=== PATIENT | female | born 1960 | race Caucasian/White ===

== ENCOUNTER 2021-08-09 15:35 | Emergency (ER) | payer SELFPAY ==
[~2021-08-09] VITALS: Ht 165.1 cm; Wt 68.6 kg
[2021-08-09 15:48] VITALS: BP 137/83
--- NOTE | 2021-08-09 16:18 | NUR ---
Ice pack placed in pillow case on right wrist.
[2021-08-09] MEDS ORDERED: propofol 10mg/ml 20ml vial IV ONE (16:35)
[2021-08-09] MEDS ORDERED: ondansetron 4mg rapidly disintigrating tab PO ONE (16:35)
[2021-08-09] MEDS ORDERED: morphine 4 MG/ML inj SYRINge IV ONE (16:35)
[2021-08-09] MEDS ORDERED: BUPIVAcaine 0.5% W/EPI /PF 30ml vial IJ ONE (16:50)
[2021-08-09] MEDS ORDERED: fentaNYL/PF 50MCG/1 ML 2ML syringe IV ONE (16:50)
[2021-08-09] MEDS ORDERED: BUPIVAcaine 0.5% W/EPI /PF 10ml vial IJ ONE (17:05)
[2021-08-09] MEDS ORDERED: ONDA4TAB6 PO (18:03)
[2021-08-09] MEDS ORDERED: HYDR-3965 PO (18:03)
== END 2021-08-09 18:20 | disposition home or self-care (01) ==
LOC: ER 15:35
DX: S52.511A Displaced fracture of right radial styloid process, initial encounter for closed fracture (principal); M25.531 Pain in right wrist; Z79.899 Other long term (current) drug therapy; W19.XXXA Unspecified fall, initial encounter; Y93.89 Activity, other specified; Y92.89 Other specified places as the place of occurrence of the external cause; Y99.8 Other external cause status
CPT/HCPCS: 25605; 73100; 73110; 96374; 96375; 99284; J2270; J3010

== ENCOUNTER 2021-09-15 15:43 | Inpatient (IN) | payer BC ==
[~2021-09-15] VITALS: Ht 165.1 cm; Wt 69.1 kg
[~2021-09-15 15:43] MED LIST: ONDA4TAB6 PO
[2021-09-15 17:25] LABS: BASOPHILS # (AUTO) 0.1 X10'3 (0-0.2); BASOPHILS % (AUTO) 0.4 % (0-1); EOSINOPHILS # (AUTO) 0.1 X10'3 (0-0.9); EOSINOPHILS % (AUTO) 0.6 % (0-6); LYMPHOCYTES # (AUTO) 1.1 X10'3 (1.1-4.8); LYMPHOCYTES % (AUTO) 5.2 % (21-51); MEAN CORPUSCULAR HEMOGLOBIN 35.8 PG (27.0-31.0); MEAN CORPUSCULAR HGB CONC 32.9 g/dL (33.0-36.5); MEAN PLATELET VOLUME 7.3 FL (7.4-10.4); MONOCYTES # (AUTO) 0.9 X10'3 (0-0.9); MONOCYTES % (AUTO) 4.4 % (2-12); NEUTROPHILS # (AUTO) 18.5 X10'3 (1.8-7.7); NEUTROPHILS % (AUTO) 89.4 % (42-75); PLATELET COUNT 577 X10'3 (140-440); RED BLOOD COUNT 1.15 X10'6 (4.20-5.60); RED CELL DISTRIBUTION WIDTH 16.1 % (11.5-14.5); WHITE BLOOD COUNT 20.7 X10'3 (4.5-11.0)
[2021-09-15 17:31] LABS: ALANINE AMINOTRANSFERASE 15 U/L (12-78); ALBUMIN 2.8 G/DL (3.4-5.0); ALBUMIN/GLOBULIN RATIO 0.7 (1.1-1.5); ALKALINE PHOSPHATASE 69 IU/L (46-116); ANION GAP 12 (8-16); ASPARTATE AMINO TRANSFERASE 13 U/L (10-37); BILIRUBIN,TOTAL 0.1 MG/DL (0.1-1.0); BLOOD UREA NITROGEN 57 MG/DL (7-18); BUN/CREATININE RATIO 24.2 (6.6-38.0); CALCIUM 9.2 MG/DL (8.5-10.1); CHLORIDE 101 MMOL/L (99-107); CREATININE 2.36 MG/DL (0.40-0.90); GLUCOSE 109 MG/DL (70-104); POTASSIUM 3.7 MMOL/L (3.5-5.1); SODIUM 133 MMOL/L (135-145); TOTAL CARBON DIOXIDE 20.2 MMOL/L (24-32); TOTAL PROTEIN 6.9 G/DL (6.4-8.2); eGFR 21 ML/MIN
[2021-09-15 17:38] LABS: HEMOGLOBIN 4.1 g/dl (12.0-16.0)
[2021-09-15 17:39] LABS: HEMATOCRIT 12.6 % (35.0-45.0)
[2021-09-15] MEDS ORDERED: HYDROcodone/acetaminophen 5mg/325mg tablet PO ONE (17:55)
[2021-09-15] MEDS ORDERED: normal saline 1000ml 1,000 ML IV ONE (17:55)
[2021-09-15 18:23] LABS: ETHANOL < 0.010 GM/DL (0.0-0.010)
[2021-09-15] MEDS ORDERED: CefTRIAXone/D5W-Rocephin 1gm 50 ML IV ONE (18:50)
[2021-09-15] MEDS ORDERED: pantoprazole 40 MG vial IV ONE (18:50)
[2021-09-15] MEDS: octreotide inj. 1,250 MCG in normal saline 250ml IV soln 243.75 ML IV SCH (19:28)
[2021-09-15 20:23] LABS: CLARITY,URINE SLIGHTLY CLOUDY (Clear); COLOR,URINE YELLOW (Yellow); UA COLLECTION TYPE STRAIGHT CATH
[2021-09-15 20:24] LABS: GLUCOSE, URINE NEGATIVE (Neg); KETONES,URINE NEGATIVE (Neg); LEUKOCYTE ESTERASE ,URINE MODERATE (Neg); NITRITES, URINE NEGATIVE (Neg); OCCULT BLOOD,URINE TRACE-INTACT (Neg); PH,URINE 7.5 (4.8-8.0); PROTEIN,URINE NEGATIVE (Neg); UROBILINOGEN,URINE 0.2 E.U/dL (0.2-1.0)
[2021-09-15 20:38] LABS: BACTERIA,URINE 3+ /HPF (Neg); MUCUS STRANDS NONE SEEN /LPF (Neg); RBC,URINE 0-2 /HPF (0-2); SQUAMOUS EPITHELIAL CELL,UR FEW /LPF (FEW); WBC,URINE TNTC /HPF (0-4)
[2021-09-15] MEDS ORDERED: morphine 2 MG/ML inj. syringe IV PRN (20:45)
[2021-09-15] MEDS ORDERED: magnesium Cl slow-release 64mg tablet PO PRN (20:45)
[2021-09-15] MEDS ORDERED: dextrose 50%-water 50ml dispensing syringe IV PRN (20:45)
[2021-09-15] MEDS ORDERED: potassium Cl 40MEQ/1/2NS 520ml 520 ML IV PRN ×2 (20:45)
[2021-09-15] MEDS ORDERED: LORazepam 2 mg/ml vial IV PRN (20:45)
[2021-09-15] MEDS ORDERED: acetaminophen 325mg tablet PO PRN ×2 (20:45)
[2021-09-15] MEDS ORDERED: magnesium 2GM in 50ml NS 50 ML IV PRN (20:45)
[2021-09-15] MEDS ORDERED: ondansetron/PF 4mg/2ml inj IV PRN (20:45)
[2021-09-15] MEDS ORDERED: magnesium 4gm in 100ml NS 100 ML IV PRN (20:45)
[2021-09-15] MEDS ORDERED: LORazepam 1 MG tablet PO PRN (20:45)
[2021-09-15] MEDS ORDERED: potassium Cl 20 mEq SR tablet PO PRN ×2 (20:45)
[2021-09-15] MEDS ORDERED: temazepam 15mg capsule PO PRN (21:00)
[2021-09-15] MEDS ORDERED: VANCOMYCIN 1,500MG inj. 1,500 MG in normal saline 500ml IV soln 300 ML IV ONE (21:20)
[2021-09-15] MEDS: pantoprazole 40MG/NS 100ML BAG 100 ML IV SCH (21:40)
[2021-09-15] MEDS: normal saline 1000ml 1,000 ML IV SCH (21:46)
[2021-09-16] VITALS (17 sets, daily range): BP systolic 98–128; BP diastolic 54–83
[2021-09-16] MEDS: piperacillin/tazo 3.375gm/50ml 50 ML IV SCH ×3 (00:26→17:06)
[2021-09-16] MEDS: pantoprazole 40MG/NS 100ML BAG 100 ML IV SCH ×4 (01:00→22:51)
--- NOTE | 2021-09-16 01:47 | NUR ---
received ED report from Brandi MOODY. had the opportunity to review patient's chart and ask questions
[2021-09-16] MEDS ORDERED: LITH300C PO (04:48)
[2021-09-16] MEDS ORDERED: CHOL500049 PO (04:48)
[2021-09-16 07:14] LABS: BASOPHILS # (AUTO) 0.1 X10'3 (0-0.2); BASOPHILS % (AUTO) 0.3 % (0-1); EOSINOPHILS # (AUTO) 0.2 X10'3 (0-0.9); EOSINOPHILS % (AUTO) 1.2 % (0-6); LYMPHOCYTES # (AUTO) 1.3 X10'3 (1.1-4.8); LYMPHOCYTES % (AUTO) 8.2 % (21-51); MEAN CORPUSCULAR HEMOGLOBIN 35.1 PG (27.0-31.0); MEAN CORPUSCULAR HGB CONC 33.3 g/dL (33.0-36.5); MEAN CORPUSCULAR VOLUME 105.4 FL (78-98); MEAN PLATELET VOLUME 7.4 FL (7.4-10.4); MONOCYTES # (AUTO) 1.3 X10'3 (0-0.9); MONOCYTES % (AUTO) 8.3 % (2-12); NEUTROPHILS # (AUTO) 12.5 X10'3 (1.8-7.7); PLATELET COUNT 517 X10'3 (140-440); RED BLOOD COUNT 1.43 X10'6 (4.20-5.60); RED CELL DISTRIBUTION WIDTH 17.1 % (11.5-14.5); WHITE BLOOD COUNT 15.2 X10'3 (4.5-11.0)
[2021-09-16 07:29] LABS: ALANINE AMINOTRANSFERASE 15 U/L (12-78); ALBUMIN 2.5 G/DL (3.4-5.0); ALBUMIN/GLOBULIN RATIO 0.7 (1.1-1.5); ALKALINE PHOSPHATASE 68 IU/L (46-116); ANION GAP 12 (8-16); ASPARTATE AMINO TRANSFERASE 15 U/L (10-37); BILIRUBIN,TOTAL 0.2 MG/DL (0.1-1.0); BLOOD UREA NITROGEN 45 MG/DL (7-18); BUN/CREATININE RATIO 20.1 (6.6-38.0); CALCIUM 8.3 MG/DL (8.5-10.1); CHLORIDE 107 MMOL/L (99-107); CREATININE 2.24 MG/DL (0.40-0.90); GLUCOSE 150 MG/DL (70-104); MAGNESIUM 2.3 MG/DL (1.5-2.4); POTASSIUM 3.9 MMOL/L (3.5-5.1); SODIUM 139 MMOL/L (135-145); TOTAL CARBON DIOXIDE 20.1 MMOL/L (24-32); TOTAL PROTEIN 6.1 G/DL (6.4-8.2); eGFR 22 ML/MIN
[2021-09-16] MEDS ORDERED: fentaNYL/PF 50MCG/1 ML 2ML syringe ONE (07:30)
[2021-09-16] MEDS ORDERED: MIDAZolam 1 MG/ML 5ML VIAL ONE (07:30)
[2021-09-16] MEDS ORDERED: LIDOcaine Viscous 15ml cup ONE (07:31)
[2021-09-16 07:35] LABS: HEMATOCRIT 15.1 % (35.0-45.0)
[2021-09-16 07:41] LABS: % IRON SATURATION 8 % (11-46); IRON 21 UG/DL (49-151); TOTAL IRON BINDING CAPACITY 253 UG/DL (259-388)
--- NOTE | 2021-09-16 07:57 | NUR ---
Problems reprioritized. Patient report given, questions answered & plan of care reviewed with Wilmer MOODY.
[2021-09-16 08:43] LABS: OCCULT BLOOD STOOL POSITIVE (Neg)
[2021-09-16] MEDS: nicotine 14mg patch - 24hr TD SCH (12:11)
[2021-09-16] MEDS: normal saline 1000ml 1,000 ML IV SCH ×3 (12:12→22:51)
--- NOTE | 2021-09-16 13:48 | NUR ---
Met with patient in regards to alcohol use and to see if patient wanted resources for treatment options. Patient attends AA meetings online. I discussed with patient about possibly getting a sponsor and doing meetings in person since she is struggling with drinking. Patient agrees to wanting to get more help. Patient is going to call and see if she can get a sponsor lined up. I will follow up with patient while she is in hospital.
--- NOTE | 2021-09-16 18:46 | NUR ---
Patient in room PCU 3012. I have received report from Maame MOODY and had the opportunity to ask questions and assume patient care. Pt sitting up in bed eating dinner, no signs of distress. Will continue to monitor.
[2021-09-16] MEDS: K and/or MAG REPLACEMENT MC SCH ×2 (19:32→19:43)
[2021-09-16] MEDS: mineral oil/petrolatum, white cream 113gm jar TP SCH (19:43)
[2021-09-16] MEDS: lactobacillus rhamnosus 10,000 MMU CELLS/CAPSULE PO SCH (19:43)
[2021-09-16] MEDS: octreotide inj. 1,250 MCG in normal saline 250ml IV soln 243.75 ML IV SCH (19:50)
[2021-09-16] MEDS: lithium carbonate 150mg capsule PO SCH (21:04)
[2021-09-16] MEDS: HYDROcodone/acetaminophen 5mg/325mg tablet PO PRN (23:18)
[2021-09-17] VITALS (13 sets, daily range): BP systolic 104–135; BP diastolic 61–89
[2021-09-17] MEDS ORDERED: vancomycin/NS 500MG ADD-VANT 100 ML IV SCH
[2021-09-17] MEDS: piperacillin/tazo 3.375gm/50ml 50 ML IV SCH ×2 (00:41→08:00)
[2021-09-17] MEDS: pantoprazole 40MG/NS 100ML BAG 100 ML IV SCH ×3 (01:00→09:53)
--- NOTE | 2021-09-17 06:25 | NUR ---
Problems reprioritized. Patient report given, questions answered & plan of care reviewed with Stephanie MOODY.
--- NOTE | 2021-09-17 06:45 | NUR ---
Patient in room PCU 3012B. I have received report from FRANSISCO POTTS and had the opportunity to ask questions and assume patient care.
[2021-09-17 07:24] LABS: BASOPHILS # (AUTO) 0.1 X10'3 (0-0.2); BASOPHILS % (AUTO) 0.6 % (0-1); EOSINOPHILS # (AUTO) 0.3 X10'3 (0-0.9); EOSINOPHILS % (AUTO) 2.7 % (0-6); LYMPHOCYTES # (AUTO) 1.5 X10'3 (1.1-4.8); LYMPHOCYTES % (AUTO) 12.5 % (21-51); MEAN CORPUSCULAR HEMOGLOBIN 35.1 PG (27.0-31.0); MEAN CORPUSCULAR VOLUME 103.5 FL (78-98); MEAN PLATELET VOLUME 7.5 FL (7.4-10.4); MONOCYTES # (AUTO) 1.1 X10'3 (0-0.9); MONOCYTES % (AUTO) 9.3 % (2-12); NEUTROPHILS # (AUTO) 8.8 X10'3 (1.8-7.7); NEUTROPHILS % (AUTO) 74.9 % (42-75); PLATELET COUNT 569 X10'3 (140-440); RED BLOOD COUNT 1.84 X10'6 (4.20-5.60); WHITE BLOOD COUNT 11.7 X10'3 (4.5-11.0)
[2021-09-17 07:30] LABS: HEMOGLOBIN 6.5 g/dl (12.0-16.0)
[2021-09-17 07:39] LABS: ALANINE AMINOTRANSFERASE 14 U/L (12-78); ALBUMIN 2.3 G/DL (3.4-5.0); ALBUMIN/GLOBULIN RATIO 0.6 (1.1-1.5); ALKALINE PHOSPHATASE 63 IU/L (46-116); ANION GAP 10 (8-16); ASPARTATE AMINO TRANSFERASE 13 U/L (10-37); BILIRUBIN,TOTAL 0.3 MG/DL (0.1-1.0); BLOOD UREA NITROGEN 29 MG/DL (7-18); BUN/CREATININE RATIO 14.4 (6.6-38.0); CALCIUM 8.4 MG/DL (8.5-10.1); CHLORIDE 113 MMOL/L (99-107); CREATININE 2.02 MG/DL (0.40-0.90); GLUCOSE 129 MG/DL (70-104); MAGNESIUM 2.4 MG/DL (1.5-2.4); POTASSIUM 3.9 MMOL/L (3.5-5.1); SODIUM 144 MMOL/L (135-145); TOTAL CARBON DIOXIDE 21.5 MMOL/L (24-32); TOTAL PROTEIN 5.9 G/DL (6.4-8.2); eGFR 25 ML/MIN
--- NOTE | 2021-09-17 07:53 | NUR ---
CRITICAL HBG 6.5 AND HCT 19.0, PAGED DR ESPINOZA AWAITING CALL BACK
[2021-09-17] MEDS: nicotine 14mg patch - 24hr TD SCH (08:00)
[2021-09-17] MEDS: K and/or MAG REPLACEMENT MC SCH ×2 (08:00→20:00)
[2021-09-17] MEDS ORDERED: ergocalciferol (vit D2) capsule 50,000 UNITS (1,250mcg) CAPSULE PO SCH (08:00)
[2021-09-17] MEDS: lactobacillus rhamnosus 10,000 MMU CELLS/CAPSULE PO SCH ×2 (09:53→21:10)
[2021-09-17] MEDS: HYDROcodone/acetaminophen 5mg/325mg tablet PO PRN ×3 (09:55→21:10)
[2021-09-17] MEDS: mineral oil/petrolatum, white cream 113gm jar TP SCH ×2 (09:56→21:12)
[2021-09-17] MEDS: CefTRIAXone/D5W-Rocephin 1gm 50 ML IV SCH (15:01)
--- NOTE | 2021-09-17 18:42 | NUR ---
Patient in room PCU 3012. I have received report from Stephanie MOODY and had the opportunity to ask questions and assume patient care.
--- NOTE | 2021-09-17 18:45 | NUR ---
Problems reprioritized. Patient report given, questions answered & plan of care reviewed with FRANSISCO POTTS.
[2021-09-17] MEDS: pantoprazole 40mg Tablet.DR PO SCH (21:11)
[2021-09-17] MEDS: lithium carbonate 150mg capsule PO SCH (21:12)
[2021-09-18 02:00] VITALS: BP 138/78
[2021-09-18] MEDS: HYDROcodone/acetaminophen 5mg/325mg tablet PO PRN ×2 (04:10→08:31)
--- NOTE | 2021-09-18 06:41 | NUR ---
Problems reprioritized. Patient report given, questions answered & plan of care reviewed with Nicole MOODY.
[2021-09-18 07:00] VITALS: BP 140/80
--- NOTE | 2021-09-18 07:07 | NUR ---
Patient in room PCU 3012. I have received report from Celia Torres had the opportunity to ask questions and assume patient care. Pt semi fowlers in bed, chest rising and falling evenly. tray table within reach, safety measures in place. no s/sx acute distress
[2021-09-18 07:31] LABS: BASOPHILS # (AUTO) 0.1 X10'3 (0-0.2); BASOPHILS % (AUTO) 0.7 % (0-1)
[2021-09-18 07:36] LABS: EOSINOPHILS # (AUTO) 0.6 X10'3 (0-0.9); EOSINOPHILS % (AUTO) 4.9 % (0-6); HEMATOCRIT 22.6 % (35.0-45.0); HEMOGLOBIN 7.8 g/dl (12.0-16.0); LYMPHOCYTES # (AUTO) 1.4 X10'3 (1.1-4.8); LYMPHOCYTES % (AUTO) 11.6 % (21-51); MEAN CORPUSCULAR HEMOGLOBIN 34.8 PG (27.0-31.0); MEAN CORPUSCULAR HGB CONC 34.7 g/dL (33.0-36.5); MEAN CORPUSCULAR VOLUME 100.2 FL (78-98); MEAN PLATELET VOLUME 7.3 FL (7.4-10.4); MONOCYTES % (AUTO) 8.5 % (2-12); NEUTROPHILS # (AUTO) 8.8 X10'3 (1.8-7.7); NEUTROPHILS % (AUTO) 74.3 % (42-75); PLATELET COUNT 588 X10'3 (140-440); RED BLOOD COUNT 2.26 X10'6 (4.20-5.60); RED CELL DISTRIBUTION WIDTH 19.7 % (11.5-14.5); WHITE BLOOD COUNT 11.9 X10'3 (4.5-11.0)
[2021-09-18] MEDS: K and/or MAG REPLACEMENT MC SCH (08:00)
[2021-09-18 08:14] LABS: ALANINE AMINOTRANSFERASE 14 U/L (12-78); ALBUMIN 2.4 G/DL (3.4-5.0); ALBUMIN/GLOBULIN RATIO 0.6 (1.1-1.5); ALKALINE PHOSPHATASE 65 IU/L (46-116); ANION GAP 11 (8-16); ASPARTATE AMINO TRANSFERASE 11 U/L (10-37); BILIRUBIN,TOTAL 0.2 MG/DL (0.1-1.0); BLOOD UREA NITROGEN 19 MG/DL (7-18); BUN/CREATININE RATIO 10.5 (6.6-38.0); CALCIUM 8.4 MG/DL (8.5-10.1); CHLORIDE 112 MMOL/L (99-107); CREATININE 1.81 MG/DL (0.40-0.90); GLUCOSE 100 MG/DL (70-104); MAGNESIUM 2.3 MG/DL (1.5-2.4); POTASSIUM 3.4 MMOL/L (3.5-5.1); SODIUM 143 MMOL/L (135-145); TOTAL CARBON DIOXIDE 20.4 MMOL/L (24-32); TOTAL PROTEIN 6.2 G/DL (6.4-8.2); eGFR 28 ML/MIN
[2021-09-18] MEDS: nicotine 14mg patch - 24hr TD SCH (08:25)
[2021-09-18] MEDS: lactobacillus rhamnosus 10,000 MMU CELLS/CAPSULE PO SCH (08:25)
[2021-09-18] MEDS: pantoprazole 40mg Tablet.DR PO SCH (08:26)
[2021-09-18] MEDS: mineral oil/petrolatum, white cream 113gm jar TP SCH (08:31)
[2021-09-18] MEDS: CefTRIAXone/D5W-Rocephin 1gm 50 ML IV SCH (08:32)
[2021-09-18 10:24] LABS: PLATELET ESTIMATE INCREASED
[2021-09-18 10:25] LABS: ANISOCYTOSIS 2+
[2021-09-18] MEDS ORDERED: FOLI0.4T6 PO (10:35)
[2021-09-18] MEDS ORDERED: PANT-47 PO (10:35)
[2021-09-18] MEDS ORDERED: THIA100T70 PO (10:35)
[2021-09-18] MEDS ORDERED: CEFD300C3 PO (10:36)
[2021-09-18 12:00] VITALS: BP 131/76
--- NOTE | 2021-09-18 12:00 | NUR ---
Knight Catheter discontinued. tip intact. p.o. fluids encouraged.
--- NOTE | 2021-09-18 15:30 | NUR ---
Pt voided in large amount in toilet, s/p pacheco discontinuation.
[2021-09-18 16:00] VITALS: BP 114/76
--- NOTE | 2021-09-18 17:08 | NUR ---
Pt stable for discharge per MD order. All discharge instructions reviewed with the patient and all questions answered. pt declined follow up appointment. "I dont need no primary care doc, only my doc that prescribes my psych drugs. I dont need no folic acid or antibiotics, im not picking them up, i just need the norco. " pt education completed with little verbalization of understanding. New Rx escripted to Satya Harper in [place]. PIV discontinued. cannula intact. net washer discontinued. belongings collected and sent with the pt. Pt wheeled to the [facility] where she left in a private vehicle. pt left without s/sx acute distress. Addendum: 09/18/21 at 1711 by Nicole Josue RN pt discharged at 1637
[2021-09-18] MEDS ORDERED: VANCOMYCIN LEVEL IV ONE (23:30)
[2021-09-20] MEDS ORDERED: thiamine 100mg tablet PO SCH (08:00)
[2021-09-20] MEDS ORDERED: folic acid 1mg tablet PO SCH (08:00)
== END 2021-09-18 16:35 | disposition home or self-care (01) | DRG 871 ==
LOC: ER 15:44 → ED HOLD 20:50 → PCU 3S 09-16 03:02
PROVIDERS: ADMIT Internal Medicine; ATTEND Family Medicine
PROC: 0DB68ZX Excision of Stomach, Via Natural or Artificial Opening Endoscopic, Diagnostic (ICD-10-PCS; principal; 2021-09-16)
PROC: 30233N1 Transfusion of Nonautologous Red Blood Cells into Peripheral Vein, Percutaneous Approach (ICD-10-PCS; 2021-09-16)
DX: A41.9 Sepsis, unspecified organism (principal); K29.71 Gastritis, unspecified, with bleeding; K26.4 Chronic or unspecified duodenal ulcer with hemorrhage; N17.0 Acute kidney failure with tubular necrosis; D62 Acute posthemorrhagic anemia; E87.1 Hypo-osmolality and hyponatremia; N39.0 Urinary tract infection, site not specified; F17.210 Nicotine dependence, cigarettes, uncomplicated; Z66 Do not resuscitate; F31.9 Bipolar disorder, unspecified; F10.20 Alcohol dependence, uncomplicated; B96.20 Unspecified Escherichia coli [E. coli] as the cause of diseases classified elsewhere; K20.90 Esophagitis, unspecified without bleeding; K43.2 Incisional hernia without obstruction or gangrene; R29.6 Repeated falls; T39.395A Adverse effect of other nonsteroidal anti-inflammatory drugs [NSAID], initial encounter; Z20.822 Contact with and (suspected) exposure to COVID-19; Y92.89 Other specified places as the place of occurrence of the external cause; Z71.41 Alcohol abuse counseling and surveillance of alcoholic
CPT/HCPCS: 36415; 36430; 43239; 70450; 80053; 80320; 81001; 82272; 82948; 83520; 83540; 83550; 83605; 83735; 85008; 85025; 85610; 86870; 86885; 86900; 86901; 86902; 86905; 86920; 86922; 87040; 87077; 87081; 87088; 87186; 87635; 96361; 96365; 96375; 97110; 97530; 99152; 99285; A4620; C9113; C9803; G0378; J0696; J2250; J2270; J2354; J2405; J2543; J3010; J3370; J7030; J7040; J7050; P9016

== ENCOUNTER 2021-10-23 10:36 | Emergency (ER) | payer BC ==
[~2021-10-23] VITALS: Ht 165.1 cm; Wt 63.6 kg
[~2021-10-23 10:36] MED LIST changes: +CHOL500049 PO; +LITH300C PO; -ONDA4TAB6 PO; +PANT-47 PO; +THIA100T70 PO
[2021-10-23 12:22] VITALS: BP 148/84
== END 2021-10-23 12:24 | disposition home or self-care (01) ==
LOC: ER 10:37
DX: R07.81 Pleurodynia (principal); Z98.890 Other specified postprocedural states; Z79.899 Other long term (current) drug therapy
CPT/HCPCS: 71100; 99284

== ENCOUNTER 2021-12-17 11:58 | Emergency (ER) | payer BC ==
[~2021-12-17] VITALS: Ht 165.1 cm; Wt 62.3 kg
[2021-12-17 12:02] VITALS: BP 148/99
[2021-12-17 12:29] LABS: BASOPHILS # (AUTO) 0.1 X10'3 (0-0.2); BASOPHILS % (AUTO) 1.2 % (0-1); EOSINOPHILS # (AUTO) 0.2 X10'3 (0-0.9); EOSINOPHILS % (AUTO) 2.2 % (0-6); HEMATOCRIT 23.6 % (35.0-45.0); LYMPHOCYTES # (AUTO) 0.9 X10'3 (1.1-4.8); LYMPHOCYTES % (AUTO) 10.6 % (21-51); MEAN CORPUSCULAR HEMOGLOBIN 20.8 PG (27.0-31.0); MEAN CORPUSCULAR HGB CONC 29.3 g/dL (33.0-36.5); MEAN CORPUSCULAR VOLUME 70.8 FL (78-98); MONOCYTES # (AUTO) 0.7 X10'3 (0-0.9); MONOCYTES % (AUTO) 7.9 % (2-12); NEUTROPHILS # (AUTO) 6.7 X10'3 (1.8-7.7); NEUTROPHILS % (AUTO) 78.1 % (42-75); PLATELET COUNT 572 X10'3 (140-440); RED BLOOD COUNT 3.33 X10'6 (4.20-5.60); RED CELL DISTRIBUTION WIDTH 20.5 % (11.5-14.5); WHITE BLOOD COUNT 8.6 X10'3 (4.5-11.0)
[2021-12-17 12:34] LABS: HEMOGLOBIN 6.9 g/dl (12.0-16.0)
[2021-12-17 12:51] LABS: ALANINE AMINOTRANSFERASE 16 U/L (12-78); ALBUMIN 3.8 G/DL (3.4-5.0); ALBUMIN/GLOBULIN RATIO 0.8 (1.1-1.5); ALKALINE PHOSPHATASE 84 IU/L (46-116); ANION GAP 10 (8-16); ASPARTATE AMINO TRANSFERASE 11 U/L (10-37); BILIRUBIN,TOTAL 0.4 MG/DL (0.1-1.0); BLOOD UREA NITROGEN 19 MG/DL (7-18); BUN/CREATININE RATIO 11.7 (6.6-38.0); CALCIUM 9.8 MG/DL (8.5-10.1); CHLORIDE 100 MMOL/L (99-107); CREATININE 1.63 MG/DL (0.40-0.90); GLUCOSE 92 MG/DL (70-104); POTASSIUM 4.4 MMOL/L (3.5-5.1); SODIUM 133 MMOL/L (135-145); TOTAL CARBON DIOXIDE 22.8 MMOL/L (24-32); TOTAL PROTEIN 8.5 G/DL (6.4-8.2); eGFR 32 ML/MIN
[2021-12-17 13:02] LABS: ANISOCYTOSIS 3+; ELLIPTOCYTES 1+; MICROCYTOSIS 1+; PLATELET ESTIMATE INCREASED; STOMATOCYTES 1+
[2021-12-17 13:03] LABS: HYPOCHROMASIA 2+; SCHISTOCYTES FEW; TEAR DROP CELLS FEW
[2021-12-17] MEDS ORDERED: FERR325T28 PO (16:31)
== END 2021-12-17 17:10 | disposition home or self-care (01) ==
LOC: ER 11:58
DX: D50.9 Iron deficiency anemia, unspecified (principal); Z87.81 Personal history of (healed) traumatic fracture; Z79.899 Other long term (current) drug therapy
CPT/HCPCS: 36415; 80053; 85008; 85025; 85610; 86870; 86885; 86900; 86901; 86905; 99283

== ENCOUNTER 2021-12-27 13:20 | Emergency (ER) | payer BC ==
[~2021-12-27] VITALS: Ht 162.6 cm; Wt 61.3 kg
[~2021-12-27 13:20] MED LIST changes: +FERR325T28 PO
[2021-12-27 13:57] VITALS: BP 131/92
[2021-12-27 14:42] LABS: BASOPHILS # (AUTO) 0.1 X10'3 (0-0.2); EOSINOPHILS # (AUTO) 0.3 X10'3 (0-0.9); EOSINOPHILS % (AUTO) 2.9 % (0-6); LYMPHOCYTES # (AUTO) 1.1 X10'3 (1.1-4.8); MONOCYTES # (AUTO) 0.6 X10'3 (0-0.9)
[2021-12-27 14:44] LABS: BASOPHILS % (AUTO) 0.8 % (0-1); HEMATOCRIT 25.2 % (35.0-45.0); HEMOGLOBIN 7.2 g/dl (12.0-16.0); LYMPHOCYTES % (AUTO) 10.4 % (21-51); MEAN CORPUSCULAR HGB CONC 28.7 g/dL (33.0-36.5); MEAN CORPUSCULAR VOLUME 69.8 FL (78-98); MEAN PLATELET VOLUME 7.2 FL (7.4-10.4); MONOCYTES % (AUTO) 5.3 % (2-12); NEUTROPHILS # (AUTO) 8.4 X10'3 (1.8-7.7); NEUTROPHILS % (AUTO) 80.6 % (42-75); PLATELET COUNT 688 X10'3 (140-440); RED BLOOD COUNT 3.61 X10'6 (4.20-5.60); RED CELL DISTRIBUTION WIDTH 20.1 % (11.5-14.5); WHITE BLOOD COUNT 10.4 X10'3 (4.5-11.0)
[2021-12-27 15:09] LABS: ALANINE AMINOTRANSFERASE 16 U/L (12-78); ALBUMIN 3.6 G/DL (3.4-5.0); ALBUMIN/GLOBULIN RATIO 0.7 (1.1-1.5); ALKALINE PHOSPHATASE 91 IU/L (46-116); ANION GAP 10 (8-16); ASPARTATE AMINO TRANSFERASE 11 U/L (10-37); BILIRUBIN,TOTAL 0.2 MG/DL (0.1-1.0); BLOOD UREA NITROGEN 17 MG/DL (7-18); BUN/CREATININE RATIO 9.5 (6.6-38.0); CALCIUM 9.7 MG/DL (8.5-10.1); CHLORIDE 102 MMOL/L (99-107); CREATININE 1.79 MG/DL (0.40-0.90); GLUCOSE 147 MG/DL (70-104); POTASSIUM 3.9 MMOL/L (3.5-5.1); SODIUM 136 MMOL/L (135-145); TOTAL CARBON DIOXIDE 23.7 MMOL/L (24-32); TOTAL PROTEIN 8.8 G/DL (6.4-8.2); eGFR 29 ML/MIN
[2021-12-27 15:44] LABS: PLATELET ESTIMATE INCREASED
[2021-12-27 15:45] LABS: ANISOCYTOSIS 2+; HYPOCHROMASIA 2+; MICROCYTOSIS 2+; SCHISTOCYTES FEW; TARGET CELLS FEW
== END 2021-12-27 17:39 | disposition home or self-care (01) ==
LOC: ER 13:21
DX: D50.9 Iron deficiency anemia, unspecified (principal); N18.4 Chronic kidney disease, stage 4 (severe)
CPT/HCPCS: 36415; 80053; 85008; 85025; 99283

== ENCOUNTER 2022-02-09 07:18 | Emergency (ER) | payer BC ==
[~2022-02-09] VITALS: Ht 165.1 cm; Wt 63.6 kg
[~2022-02-09 07:18] MED LIST changes: -FERR325T28 PO
[2022-02-09 07:23] VITALS: BP 138/66
--- NOTE | 2022-02-09 08:00 | NUR ---
Fair results from enema.
[2022-02-09] MEDS ORDERED: MAGN296S68 PO (08:09)
--- NOTE | 2022-02-09 08:30 | NUR ---
Pt and daughter given and understands d/c instructions. Ambulatory with a steady gait.
== END 2022-02-09 08:30 | disposition home or self-care (01) ==
LOC: ER 07:18
DX: K59.00 Constipation, unspecified (principal); D64.9 Anemia, unspecified; N18.9 Chronic kidney disease, unspecified; Z79.899 Other long term (current) drug therapy
CPT/HCPCS: 99284

== ENCOUNTER 2022-02-16 12:27 | Emergency (ER) | payer BC ==
[~2022-02-16] VITALS: Ht 165.1 cm; Wt 61.4 kg
[~2022-02-16 12:27] MED LIST changes: +MAGN296S68 PO
[2022-02-16 12:30] VITALS: BP 109/93
[2022-02-16] MEDS ORDERED: TRAM100C3 PO (14:22)
== END 2022-02-16 14:36 | disposition home or self-care (01) ==
LOC: ER 12:27
DX: K46.9 Unspecified abdominal hernia without obstruction or gangrene (principal); G89.29 Other chronic pain; M25.531 Pain in right wrist; N18.9 Chronic kidney disease, unspecified; D64.9 Anemia, unspecified; F31.9 Bipolar disorder, unspecified; Z87.81 Personal history of (healed) traumatic fracture; Z79.899 Other long term (current) drug therapy
CPT/HCPCS: 99284

== ENCOUNTER 2022-04-14 14:52 | Emergency (ER) | payer BC ==
[~2022-04-14] VITALS: Ht 165.1 cm; Wt 59.1 kg
[~2022-04-14 14:52] MED LIST changes: +TRAM100C3 PO
[2022-04-14 18:39] VITALS: BP 122/84
== END 2022-04-14 18:41 | disposition home or self-care (01) ==
LOC: ER 14:52
DX: Z00.00 Encounter for general adult medical examination without abnormal findings (principal); N18.9 Chronic kidney disease, unspecified; F31.9 Bipolar disorder, unspecified; Z86.2 Personal history of diseases of the blood and blood-forming organs and certain disorders involving the immune mechanism; Z72.89 Other problems related to lifestyle; Z98.890 Other specified postprocedural states; Z79.899 Other long term (current) drug therapy
CPT/HCPCS: 99284

== ENCOUNTER 2022-04-29 07:47 | Inpatient (IN) | payer BC ==
[~2022-04-29] VITALS: Ht 162.6 cm; Wt 59.1 kg
[2022-04-29 09:44] LABS: BASOPHILS # (AUTO) 0.1 X10'3 (0-0.2); BASOPHILS % (AUTO) 0.8 % (0-1); EOSINOPHILS # (AUTO) 0.1 X10'3 (0-0.9); EOSINOPHILS % (AUTO) 1.1 % (0-6); HEMATOCRIT 27.9 % (35.0-45.0); HEMOGLOBIN 9.3 g/dl (12.0-16.0); LYMPHOCYTES # (AUTO) 0.8 X10'3 (1.1-4.8); LYMPHOCYTES % (AUTO) 7.7 % (21-51); MEAN CORPUSCULAR HEMOGLOBIN 31.7 PG (27.0-31.0); MEAN CORPUSCULAR HGB CONC 33.3 g/dL (33.0-36.5); MEAN CORPUSCULAR VOLUME 95.3 FL (78-98); MEAN PLATELET VOLUME 7.8 FL (7.4-10.4); MONOCYTES # (AUTO) 0.9 X10'3 (0-0.9); MONOCYTES % (AUTO) 9.4 % (2-12); PLATELET COUNT 380 X10'3 (140-440); RED BLOOD COUNT 2.93 X10'6 (4.20-5.60); RED CELL DISTRIBUTION WIDTH 17.2 % (11.5-14.5); WHITE BLOOD COUNT 9.9 X10'3 (4.5-11.0)
[2022-04-29 09:56] LABS: ALANINE AMINOTRANSFERASE 18 U/L (12-78); ALBUMIN 3.2 G/DL (3.4-5.0); ALBUMIN/GLOBULIN RATIO 0.6 (1.1-1.5); ALKALINE PHOSPHATASE 171 IU/L (46-116); ANION GAP 7 (8-16); ASPARTATE AMINO TRANSFERASE 17 U/L (10-37); BILIRUBIN,TOTAL 0.3 MG/DL (0.1-1.0); BLOOD UREA NITROGEN 48 MG/DL (7-18); BUN/CREATININE RATIO 24.5 (6.6-38.0); CALCIUM 9.7 MG/DL (8.5-10.1); CHLORIDE 111 MMOL/L (99-107); CREATININE 1.96 MG/DL (0.40-0.90); GLUCOSE 131 MG/DL (70-104); POTASSIUM 5.3 MMOL/L (3.5-5.1); SODIUM 142 MMOL/L (135-145); TOTAL CARBON DIOXIDE 23.6 MMOL/L (24-32); TOTAL PROTEIN 8.6 G/DL (6.4-8.2); eGFR 26 ML/MIN
[2022-04-29] MEDS ORDERED: ringers solution, lactated 1000ml IV soln IV ONE (11:45)
[2022-04-29] MEDS ORDERED: ondansetron/PF 4mg/2ml inj IV ONE (12:25)
[2022-04-29] MEDS ORDERED: morphine 4 MG/ML inj SYRINge IV ONE ×2 (12:25→15:20)
[2022-04-29 14:03] LABS: URINE AMPHETAMINE SCREEN NEGATIVE (Neg); URINE BARBITUATE SCREEN NEGATIVE (Neg); URINE BENZODIAZEPINES SCREEN NEGATIVE (Neg); URINE CANNABINOID SCREEN NEGATIVE (Neg); URINE COCAINE SCREEN NEGATIVE (Neg); URINE METHADONE SCREEN NEGATIVE (Neg); URINE OPIATE SCREEN NEGATIVE (Neg); URINE PHENCYCLIDINE SCREEN NEGATIVE (Neg)
[2022-04-29 14:09] LABS: CLARITY,URINE CLOUDY (Clear); COLOR,URINE YELLOW (Yellow); PROTEIN,URINE 30 mg/dl (Neg); UA COLLECTION TYPE STRAIGHT CATH
[2022-04-29 14:10] LABS: GLUCOSE, URINE NEGATIVE (Neg); KETONES,URINE NEGATIVE (Neg); LEUKOCYTE ESTERASE ,URINE MODERATE (Neg); NITRITES, URINE POSITIVE (Neg); OCCULT BLOOD,URINE SMALL (Neg); UROBILINOGEN,URINE 0.2 E.U/dL (0.2-1.0)
[2022-04-29 14:12] LABS: BACTERIA,URINE 3+ /HPF (Neg); MUCUS STRANDS NONE SEEN /LPF (Neg); SQUAMOUS EPITHELIAL CELL,UR MODERATE /LPF (FEW); WBC,URINE TNTC /HPF (0-4)
[2022-04-29] MEDS ORDERED: cefTRIAXone 1g/NS 100ml IVPB 100 ML IV ONE (15:40)
[2022-04-29] MEDS ORDERED: acetaminophen 650mg rectal suppository RC STA (15:43)
[2022-04-29] MEDS ORDERED: normal saline 1000ML IV soln IV ONE (15:45)
[2022-04-29] MEDS ORDERED: magnesium Cl slow-release 64mg tablet PO PRN (16:20)
[2022-04-29] MEDS ORDERED: ondansetron 4mg rapidly disintigrating tab PO PRN (16:20)
[2022-04-29] MEDS ORDERED: ondansetron/PF 4mg/2ml inj IV PRN (16:20)
[2022-04-29] MEDS ORDERED: acetaminophen 325mg tablet PO PRN (16:20)
[2022-04-29] MEDS ORDERED: acetaminophen 650mg rectal suppository RC PRN (16:20)
[2022-04-29] MEDS ORDERED: POTASSIUM BICARB 20meq eff tab 20 MEQ TABLET.EFF PO PRN ×2 (16:20)
[2022-04-29] MEDS ORDERED: mag hydrox/Alum hydrox/simeth 30ml oral suspension PO PRN (16:20)
[2022-04-29] MEDS ORDERED: potassium CL 10mEq/100ml bag 100 ML IV PRN (16:20)
[2022-04-29] MEDS ORDERED: magnesium 4gm in 100ml NS 100 ML IV PRN (16:20)
[2022-04-29] MEDS ORDERED: magnesium 2GM in 50ml NS 50 ML IV PRN (16:20)
[2022-04-29 16:51] LABS: MAGNESIUM 2.9 MG/DL (1.5-2.4); POTASSIUM 5.4 MMOL/L (3.5-5.1)
[2022-04-29] MEDS: normal saline 1000ml 1,000 ML IV SCH (17:43)
[2022-04-29] MEDS: K and/or MAG REPLACEMENT MC SCH (19:52)
[2022-04-29] MEDS: heparin, porcine 5000 units/ml vial SQ SCH (19:54)
[2022-04-29 22:11] LABS: ALANINE AMINOTRANSFERASE 13 U/L (12-78); ALBUMIN 2.5 G/DL (3.4-5.0); ALBUMIN/GLOBULIN RATIO 0.5 (1.1-1.5); ALKALINE PHOSPHATASE 151 IU/L (46-116); ANION GAP 7 (8-16); ASPARTATE AMINO TRANSFERASE 14 U/L (10-37); BILIRUBIN,TOTAL 0.2 MG/DL (0.1-1.0); BLOOD UREA NITROGEN 41 MG/DL (7-18); BUN/CREATININE RATIO 20.7 (6.6-38.0); CALCIUM 8.8 MG/DL (8.5-10.1); CHLORIDE 117 MMOL/L (99-107); CREATININE 1.98 MG/DL (0.40-0.90); GLUCOSE 93 MG/DL (70-104); SODIUM 146 MMOL/L (135-145); TOTAL CARBON DIOXIDE 21.8 MMOL/L (24-32); TOTAL PROTEIN 7.2 G/DL (6.4-8.2); eGFR 25 ML/MIN
[2022-04-30 01:19] LABS: BASOPHILS # (AUTO) 0.1 X10'3 (0-0.2); BASOPHILS % (AUTO) 1.1 % (0-1); EOSINOPHILS # (AUTO) 0.3 X10'3 (0-0.9); EOSINOPHILS % (AUTO) 5.2 % (0-6); HEMATOCRIT 23.8 % (35.0-45.0); LYMPHOCYTES # (AUTO) 0.9 X10'3 (1.1-4.8); LYMPHOCYTES % (AUTO) 15.3 % (21-51); MEAN CORPUSCULAR HEMOGLOBIN 32.2 PG (27.0-31.0); MEAN CORPUSCULAR HGB CONC 33.5 g/dL (33.0-36.5); MEAN CORPUSCULAR VOLUME 96.1 FL (78-98); MEAN PLATELET VOLUME 7.6 FL (7.4-10.4); MONOCYTES # (AUTO) 0.7 X10'3 (0-0.9); MONOCYTES % (AUTO) 12.6 % (2-12); NEUTROPHILS # (AUTO) 3.9 X10'3 (1.8-7.7); NEUTROPHILS % (AUTO) 65.8 % (42-75); PLATELET COUNT 330 X10'3 (140-440); RED BLOOD COUNT 2.47 X10'6 (4.20-5.60); RED CELL DISTRIBUTION WIDTH 17.5 % (11.5-14.5); WHITE BLOOD COUNT 5.9 X10'3 (4.5-11.0)
[2022-04-30 01:25] LABS: ALANINE AMINOTRANSFERASE 16 U/L (12-78); ALBUMIN 2.6 G/DL (3.4-5.0); ALBUMIN/GLOBULIN RATIO 0.6 (1.1-1.5); ALKALINE PHOSPHATASE 152 IU/L (46-116); ANION GAP 5 (8-16); ASPARTATE AMINO TRANSFERASE 18 U/L (10-37); BILIRUBIN,TOTAL 0.2 MG/DL (0.1-1.0); BLOOD UREA NITROGEN 41 MG/DL (7-18); CALCIUM 8.8 MG/DL (8.5-10.1); CHLORIDE 119 MMOL/L (99-107); CREATININE 1.86 MG/DL (0.40-0.90); GLUCOSE 95 MG/DL (70-104); MAGNESIUM 2.5 MG/DL (1.5-2.4); PHOSPHORUS 3.9 MG/DL (2.3-4.5); POTASSIUM 4.9 MMOL/L (3.5-5.1); SODIUM 146 MMOL/L (135-145); TOTAL CARBON DIOXIDE 22.3 MMOL/L (24-32); TOTAL PROTEIN 6.9 G/DL (6.4-8.2); eGFR 27 ML/MIN
[2022-04-30] MEDS: normal saline 1000ml 1,000 ML IV SCH ×2 (02:37→05:55)
[2022-04-30] MEDS ORDERED: morphine 2 MG/ML inj. syringe IV ONE (04:45)
[2022-04-30 05:53] VITALS: BP 98/43
[2022-04-30 06:00] VITALS: BP 97/43
[2022-04-30] MEDS: heparin, porcine 5000 units/ml vial SQ SCH ×2 (07:03→20:16)
[2022-04-30] MEDS: K and/or MAG REPLACEMENT MC SCH ×2 (08:00→20:00)
[2022-04-30] MEDS: CefTRIAXone inj 1,000 MG in dextrose 5%-water 50ml 50 ML IV SCH (08:00)
[2022-04-30] MEDS: dextrose 5%-water 1,000 ML IV SCH ×2 (10:44→20:16)
[2022-04-30 11:00] VITALS: BP 129/93
[2022-04-30 15:00] VITALS: BP 129/91
[2022-04-30 18:00] VITALS: BP 134/82
[2022-04-30] MEDS: diazepam inj 5 MG/ML inj. IV PRN (22:21)
[2022-04-30 22:23] VITALS: BP 120/75
[2022-05-01] MEDS: diazepam inj 5 MG/ML inj. IV PRN ×2 (00:54→04:58)
[2022-05-01] MEDS: dextrose 5%-water 1,000 ML IV SCH ×3 (04:58→21:26)
[2022-05-01 06:00] VITALS: BP 91/48
--- NOTE | 2022-05-01 06:39 | NUR ---
Patient in room PCU 3012. I have received report from FRANSISCO Barrios and had the opportunity to ask questions and assume patient care.
[2022-05-01 07:42] LABS: BASOPHILS # (AUTO) 0.1 X10'3 (0-0.2); BASOPHILS % (AUTO) 0.9 % (0-1); EOSINOPHILS # (AUTO) 0.6 X10'3 (0-0.9); EOSINOPHILS % (AUTO) 8.5 % (0-6); HEMATOCRIT 25.2 % (35.0-45.0); HEMOGLOBIN 8.3 g/dl (12.0-16.0); LYMPHOCYTES # (AUTO) 1.1 X10'3 (1.1-4.8); LYMPHOCYTES % (AUTO) 15.3 % (21-51); MEAN CORPUSCULAR HEMOGLOBIN 31.8 PG (27.0-31.0); MEAN CORPUSCULAR HGB CONC 32.9 g/dL (33.0-36.5); MEAN CORPUSCULAR VOLUME 96.6 FL (78-98); MEAN PLATELET VOLUME 7.8 FL (7.4-10.4); MONOCYTES # (AUTO) 0.7 X10'3 (0-0.9); MONOCYTES % (AUTO) 10.1 % (2-12); NEUTROPHILS # (AUTO) 4.8 X10'3 (1.8-7.7); NEUTROPHILS % (AUTO) 65.2 % (42-75); PLATELET COUNT 356 X10'3 (140-440); RED BLOOD COUNT 2.61 X10'6 (4.20-5.60); RED CELL DISTRIBUTION WIDTH 17.9 % (11.5-14.5); WHITE BLOOD COUNT 7.3 X10'3 (4.5-11.0)
[2022-05-01] MEDS: heparin, porcine 5000 units/ml vial SQ SCH ×2 (08:00→19:55)
[2022-05-01] MEDS: K and/or MAG REPLACEMENT MC SCH ×2 (08:00→20:07)
[2022-05-01 08:16] LABS: GLUCOSE 130 MG/DL (70-104)
[2022-05-01 08:17] LABS: ALANINE AMINOTRANSFERASE 18 U/L (12-78); ALBUMIN 2.6 G/DL (3.4-5.0); ALBUMIN/GLOBULIN RATIO 0.6 (1.1-1.5); ALKALINE PHOSPHATASE 154 IU/L (46-116); ANION GAP 7 (8-16); ASPARTATE AMINO TRANSFERASE 21 U/L (10-37); BILIRUBIN,TOTAL 0.2 MG/DL (0.1-1.0); BLOOD UREA NITROGEN 26 MG/DL (7-18); BUN/CREATININE RATIO 13.8 (6.6-38.0); CALCIUM 9.5 MG/DL (8.5-10.1); CHLORIDE 119 MMOL/L (99-107); CREATININE 1.88 MG/DL (0.40-0.90); MAGNESIUM 2.5 MG/DL (1.5-2.4); PHOSPHORUS 3.7 MG/DL (2.3-4.5); POTASSIUM 4.2 MMOL/L (3.5-5.1); SODIUM 149 MMOL/L (135-145); TOTAL CARBON DIOXIDE 22.6 MMOL/L (24-32); TOTAL PROTEIN 7.1 G/DL (6.4-8.2); eGFR 27 ML/MIN
[2022-05-01] MEDS: CefTRIAXone inj 1,000 MG in dextrose 5%-water 50ml 50 ML IV SCH (08:37)
[2022-05-01 11:00] VITALS: BP 112/81
--- NOTE | 2022-05-01 14:11 | NUR ---
PRESSURE ULCER EDUCATION: DEFINITION: A pressure ulcer is an area of skin that breaks down when you stay in one position too long. The constant pressure against the skin reduces the blood flow to that area and the affected tissue dies. CAUSES: "Being bedridden or in a wheelchair "Fragile skin "Having a chronic condition, such as diabetes or vascular disease "Inability to move certain parts of your body without assistance "Older age "Incontinence of urine or stool SYMPTOMS: "A reddened area that DOES NOT turn white when pressed on - this can be the beginning of a pressure ulcer "A blister, deep sore or a crater - these can be advanced pressure ulcers FIRST AID: "Relieve the pressure on this area "Keep the area clean and dry "Call your primary doctor if you see any of the above symptoms "DO NOT massage the area "DO NOT use a donut shaped or ring shaped pillow- these actually interfere with the blood flow and cause complications PREVENTION: "Check for pressure ulcers everyday "Change position at least every two hours to relieve pressure "Use items that help relieve pressure- pillows, sheepskin, foam padding, and powders. "Keep skin clean and dry "Eat healthy well balanced meals "Exercise daily IF YOU SEE ANY OF THESE SYMPTOMS WHILE IN THE HOSPITAL - TELL YOUR NURSE IMMEDIATELY. IF YOU SEE ANY OF THESE SYMPTOMS WHILE AT HOME OR HAVE ANY QUESTIONS OR CONCERNS ABOUT PRESSURE ULCERS - CALL YOUR PRIMARY DOCTOR IMMEDIATELY. Addendum: 05/01/22 at 1411 by Katerina Lentz LVN Amended: Links added.
[2022-05-01 15:00] VITALS: BP 121/66
[2022-05-01 18:00] VITALS: BP 102/48
--- NOTE | 2022-05-01 18:07 | NUR ---
Problems reprioritized. Patient report given, questions answered & plan of care reviewed with FRANSISCO Barrios.
[2022-05-01] MEDS: acetaminophen 325mg tablet PO PRN (19:55)
--- NOTE | 2022-05-01 21:15 | NUR ---
spoke to [facility] feels pt is clear at this point with a Piffard level of 1.1. No recommendations from their point of view but we are welcome to contact them again if we wish.
[2022-05-01 22:00] VITALS: BP 109/74
[2022-05-02] MEDS: dextrose 5%-water 1,000 ML IV SCH ×2 (05:33→13:30)
[2022-05-02 06:00] VITALS: BP 141/81
--- NOTE | 2022-05-02 06:06 | NUR ---
Patient in room PCU 3012. I have received report from FRANSISCO Barrios and had the opportunity to ask questions and assume patient care.
[2022-05-02] MEDS: CefTRIAXone inj 1,000 MG in dextrose 5%-water 50ml 50 ML IV SCH (07:34)
[2022-05-02] MEDS: K and/or MAG REPLACEMENT MC SCH ×2 (08:00→19:54)
[2022-05-02 08:04] LABS: BASOPHILS # (AUTO) 0.1 X10'3 (0-0.2); BASOPHILS % (AUTO) 0.8 % (0-1); EOSINOPHILS # (AUTO) 0.7 X10'3 (0-0.9); EOSINOPHILS % (AUTO) 8.7 % (0-6); HEMATOCRIT 26.9 % (35.0-45.0); HEMOGLOBIN 9.1 g/dl (12.0-16.0); LYMPHOCYTES # (AUTO) 1.3 X10'3 (1.1-4.8); LYMPHOCYTES % (AUTO) 16.1 % (21-51); MEAN CORPUSCULAR HEMOGLOBIN 32.6 PG (27.0-31.0); MEAN CORPUSCULAR HGB CONC 33.8 g/dL (33.0-36.5); MEAN CORPUSCULAR VOLUME 96.4 FL (78-98); MONOCYTES # (AUTO) 0.6 X10'3 (0-0.9); MONOCYTES % (AUTO) 6.7 % (2-12); NEUTROPHILS # (AUTO) 5.6 X10'3 (1.8-7.7); NEUTROPHILS % (AUTO) 67.7 % (42-75); PLATELET COUNT 378 X10'3 (140-440); RED CELL DISTRIBUTION WIDTH 17.6 % (11.5-14.5); WHITE BLOOD COUNT 8.3 X10'3 (4.5-11.0)
[2022-05-02 08:37] LABS: ALANINE AMINOTRANSFERASE 23 U/L (12-78); ALBUMIN 2.5 G/DL (3.4-5.0); ALBUMIN/GLOBULIN RATIO 0.5 (1.1-1.5); ALKALINE PHOSPHATASE 152 IU/L (46-116); ANION GAP 10 (8-16); ASPARTATE AMINO TRANSFERASE 24 U/L (10-37); BILIRUBIN,TOTAL 0.2 MG/DL (0.1-1.0); BLOOD UREA NITROGEN 18 MG/DL (7-18); BUN/CREATININE RATIO 10.1 (6.6-38.0); CALCIUM 9.3 MG/DL (8.5-10.1); CHLORIDE 111 MMOL/L (99-107); CREATININE 1.78 MG/DL (0.40-0.90); GLUCOSE 119 MG/DL (70-104); MAGNESIUM 2.2 MG/DL (1.5-2.4); PHOSPHORUS 3.6 MG/DL (2.3-4.5); POTASSIUM 4.1 MMOL/L (3.5-5.1); SODIUM 141 MMOL/L (135-145); TOTAL PROTEIN 7.3 G/DL (6.4-8.2); eGFR 29 ML/MIN
[2022-05-02] MEDS: heparin, porcine 5000 units/ml vial SQ SCH ×2 (08:41→20:05)
[2022-05-02] MEDS: acetaminophen 325mg tablet PO PRN (08:42)
[2022-05-02] MEDS ORDERED: OXYB5TAB16 PO (08:58)
[2022-05-02] MEDS ORDERED: FOLI1TAB27 PO (08:58)
[2022-05-02 11:00] VITALS: BP 139/85
--- NOTE | 2022-05-02 11:48 | NUR ---
Met with patient in regards to alcohol use and to see if patient was interested in resources for treatment options. Patient has medical issues that are preventing her from being able to go to inpatient rehab but I talked to patient about medication to help her with cravings. I text Nepo about starting patient on Naltrexone. I will follow up with patient.
[2022-05-02 15:00] VITALS: BP 122/82
[2022-05-02] MEDS ORDERED: non-formulary drug (Cholecalciferol (Vitamin D3) (Vitamin D3) 1 CAP) PO SCH (15:45)
[2022-05-02] MEDS: sodium bicarbonate (8.4%) inj. 150 MEQ in dextrose 5%-water 1,000 ML IV SCH (17:50)
--- NOTE | 2022-05-02 18:39 | NUR ---
Problems reprioritized. Patient report given, questions answered & plan of care reviewed with FRANSISCO Barrios.
[2022-05-02] MEDS ORDERED: PANT40TA54 PO (18:46)
[2022-05-02 19:33] VITALS: BP 123/86
[2022-05-02] MEDS: pantoprazole 40mg Tablet.DR PO SCH (20:05)
[2022-05-02] MEDS: oxybutynin 5mg tablet PO SCH (20:05)
[2022-05-02] MEDS: lithium carbonate 150mg capsule PO SCH (20:05)
[2022-05-02 22:00] VITALS: BP 105/63
[2022-05-03 02:00] VITALS: BP 115/80
[2022-05-03 06:00] VITALS: BP 150/72
--- NOTE | 2022-05-03 06:10 | NUR ---
Patient in room PCU 3012. I have received report from FRANSISCO Barrios and had the opportunity to ask questions and assume patient care.
[2022-05-03] MEDS: sodium bicarbonate (8.4%) inj. 150 MEQ in dextrose 5%-water 1,000 ML IV SCH (06:13)
[2022-05-03 07:13] LABS: BASOPHILS % (AUTO) 0.5 % (0-1); EOSINOPHILS # (AUTO) 0.6 X10'3 (0-0.9); EOSINOPHILS % (AUTO) 8.1 % (0-6); HEMATOCRIT 28.6 % (35.0-45.0); HEMOGLOBIN 9.7 g/dl (12.0-16.0); LYMPHOCYTES # (AUTO) 1.2 X10'3 (1.1-4.8); LYMPHOCYTES % (AUTO) 16.3 % (21-51); MEAN CORPUSCULAR HEMOGLOBIN 32.4 PG (27.0-31.0); MEAN CORPUSCULAR VOLUME 95.5 FL (78-98); MEAN PLATELET VOLUME 8.2 FL (7.4-10.4); MONOCYTES # (AUTO) 0.6 X10'3 (0-0.9); MONOCYTES % (AUTO) 7.5 % (2-12); NEUTROPHILS # (AUTO) 5.2 X10'3 (1.8-7.7); NEUTROPHILS % (AUTO) 67.6 % (42-75); PLATELET COUNT 424 X10'3 (140-440); RED BLOOD COUNT 2.99 X10'6 (4.20-5.60); RED CELL DISTRIBUTION WIDTH 17.6 % (11.5-14.5); WHITE BLOOD COUNT 7.7 X10'3 (4.5-11.0)
[2022-05-03 07:24] LABS: ALANINE AMINOTRANSFERASE 19 U/L (12-78); ALBUMIN 2.6 G/DL (3.4-5.0); ALBUMIN/GLOBULIN RATIO 0.5 (1.1-1.5); ALKALINE PHOSPHATASE 138 IU/L (46-116); ANION GAP 6 (8-16); ASPARTATE AMINO TRANSFERASE 17 U/L (10-37); BILIRUBIN,TOTAL 0.2 MG/DL (0.1-1.0); BLOOD UREA NITROGEN 17 MG/DL (7-18); BUN/CREATININE RATIO 9.7 (6.6-38.0); CALCIUM 9.2 MG/DL (8.5-10.1); CHLORIDE 112 MMOL/L (99-107); CREATININE 1.75 MG/DL (0.40-0.90); GLUCOSE 108 MG/DL (70-104); MAGNESIUM 2.3 MG/DL (1.5-2.4); PHOSPHORUS 3.9 MG/DL (2.3-4.5); SODIUM 146 MMOL/L (135-145); TOTAL CARBON DIOXIDE 27.6 MMOL/L (24-32); TOTAL PROTEIN 7.4 G/DL (6.4-8.2); eGFR 29 ML/MIN
[2022-05-03] MEDS: CefTRIAXone inj 1,000 MG in dextrose 5%-water 50ml 50 ML IV SCH (07:29)
[2022-05-03] MEDS: naltrexone 50mg tablet PO SCH (07:33)
[2022-05-03] MEDS: folic acid 1mg tablet PO SCH (07:33)
[2022-05-03] MEDS: pantoprazole 40mg Tablet.DR PO SCH ×2 (07:33→19:48)
[2022-05-03] MEDS: thiamine 100mg tablet PO SCH (07:33)
[2022-05-03] MEDS: oxybutynin 5mg tablet PO SCH ×3 (07:33→19:48)
[2022-05-03] MEDS: heparin, porcine 5000 units/ml vial SQ SCH ×2 (07:34→19:49)
[2022-05-03] MEDS: K and/or MAG REPLACEMENT MC SCH ×2 (08:00→20:00)
[2022-05-03] MEDS: dextrose 5%-water 1,000 ML IV SCH (09:57)
[2022-05-03 11:00] VITALS: BP 119/70
[2022-05-03] MEDS: magnesium hydroxide 30ml (MOM) UD suspension PO PRN (12:53)
[2022-05-03 15:00] VITALS: BP 108/81
--- NOTE | 2022-05-03 18:23 | NUR ---
Problems reprioritized. Patient report given, questions answered & plan of care reviewed with FRANSISCO Barrios.
[2022-05-03 18:57] VITALS: BP 107/75
[2022-05-03] MEDS: lithium carbonate 150mg capsule PO SCH (19:48)
[2022-05-03 22:00] VITALS: BP 126/71
--- NOTE | 2022-05-03 22:15 | NUR ---
Report called and given to FRANSISCO Borges on neuro floor. All questions answered. Pt transferred to room 4010 by RN, with all belongings and medications.
--- NOTE | 2022-05-03 23:41 | NUR ---
0243 RC'D VERBAL REPORT AND ASSUMED CARE OF PATIENT WHEN SHE ARRIVED IN BED FROM TELE FLOOR. PATIENT AWAKE ALERT AND ORIENTED X4. AGREE WITH RN ASSMT. CALL LIGHT IN REACH. POSITIONED FOR COMFORT.
[2022-05-04] MEDS: dextrose 5%-water 1,000 ML IV SCH ×2 (00:49→14:01)
[2022-05-04 06:00] VITALS: BP 105/63
--- NOTE | 2022-05-04 06:29 | NUR ---
Problems reprioritized. Patient report given, questions answered & plan of care reviewed with JOE OSORIO.
[2022-05-04 06:56] LABS: BASOPHILS # (AUTO) 0.1 X10'3 (0-0.2); EOSINOPHILS # (AUTO) 0.6 X10'3 (0-0.9); EOSINOPHILS % (AUTO) 8.9 % (0-6); HEMOGLOBIN 10.1 g/dl (12.0-16.0); LYMPHOCYTES # (AUTO) 1.3 X10'3 (1.1-4.8); LYMPHOCYTES % (AUTO) 21.2 % (21-51); MEAN CORPUSCULAR HEMOGLOBIN 32.2 PG (27.0-31.0); MEAN CORPUSCULAR HGB CONC 33.6 g/dL (33.0-36.5); MEAN CORPUSCULAR VOLUME 95.8 FL (78-98); MEAN PLATELET VOLUME 8.3 FL (7.4-10.4); MONOCYTES # (AUTO) 0.7 X10'3 (0-0.9); MONOCYTES % (AUTO) 10.5 % (2-12); NEUTROPHILS # (AUTO) 3.7 X10'3 (1.8-7.7); NEUTROPHILS % (AUTO) 58.4 % (42-75); PLATELET COUNT 477 X10'3 (140-440); RED BLOOD COUNT 3.13 X10'6 (4.20-5.60); RED CELL DISTRIBUTION WIDTH 17.6 % (11.5-14.5); WHITE BLOOD COUNT 6.3 X10'3 (4.5-11.0)
--- NOTE | 2022-05-04 07:01 | NUR ---
Patient in room ORTHO 4010. I have received report from Katerina MOODY and had the opportunity to ask questions and assume patient care.
[2022-05-04 07:11] LABS: ALANINE AMINOTRANSFERASE 20 U/L (12-78); ALBUMIN 2.7 G/DL (3.4-5.0); ALBUMIN/GLOBULIN RATIO 0.5 (1.1-1.5); ALKALINE PHOSPHATASE 134 IU/L (46-116); ANION GAP 4 (8-16); ASPARTATE AMINO TRANSFERASE 16 U/L (10-37); BILIRUBIN,TOTAL 0.2 MG/DL (0.1-1.0); BLOOD UREA NITROGEN 16 MG/DL (7-18); BUN/CREATININE RATIO 9.5 (6.6-38.0); CALCIUM 9.7 MG/DL (8.5-10.1); CHLORIDE 109 MMOL/L (99-107); CREATININE 1.69 MG/DL (0.40-0.90); GLUCOSE 99 MG/DL (70-104); PHOSPHORUS 3.5 MG/DL (2.3-4.5); POTASSIUM 4.5 MMOL/L (3.5-5.1); SODIUM 142 MMOL/L (135-145); TOTAL CARBON DIOXIDE 29.3 MMOL/L (24-32); TOTAL PROTEIN 7.8 G/DL (6.4-8.2); eGFR 31 ML/MIN
--- NOTE | 2022-05-04 07:36 | NUR ---
Initial: Pt admitted w/ metabolic encephalopathy secondary to lithium toxicity, UTI, hypernatremia, and RAND/CKD per EMR. Currently on Regular/Mech soft diet w/ mostly 25% intake of meals not meeting needs; documented to be receiving moderate assistance w/ meals. Pt is intermittently confused per physical assessment. Pt could benefit from Ensure Enlive BID to assist w/ meeting needs. Pt also receiving D5 at 70ml/hr providing 285kcals/day. No BM documented this admit, received PRN MoM 05/03. Will continue to monitor. Recs: 1. Continue Regular/EC7 diet as tolerated; assist w/ meals 2. Ensure Enlive BIDBD: pending MD verification 3. Routine bowel care 4. Routine thiamine and folic acid given EtOH hx 5. Scaled wts Addendum: 05/04/22 at [address] Amended: Links added.
[2022-05-04] MEDS: CefTRIAXone inj 1,000 MG in dextrose 5%-water 50ml 50 ML IV SCH (07:45)
[2022-05-04] MEDS: naltrexone 50mg tablet PO SCH (07:52)
[2022-05-04] MEDS: folic acid 1mg tablet PO SCH (07:52)
[2022-05-04] MEDS: pantoprazole 40mg Tablet.DR PO SCH ×2 (07:52→21:42)
[2022-05-04] MEDS: oxybutynin 5mg tablet PO SCH ×3 (07:52→21:42)
[2022-05-04] MEDS: thiamine 100mg tablet PO SCH (07:52)
[2022-05-04] MEDS: heparin, porcine 5000 units/ml vial SQ SCH ×2 (07:55→21:43)
[2022-05-04] MEDS: K and/or MAG REPLACEMENT MC SCH ×2 (07:55→20:00)
[2022-05-04 10:00] VITALS: BP 114/75
[2022-05-04] MEDS: bisacodyl 10mg suppository rectal RC PRN (17:13)
[2022-05-04 18:00] VITALS: BP 97/73
--- NOTE | 2022-05-04 18:35 | NUR ---
CARE INFORMATION ASSOCIATE documentation: I have reviewed and agree with all interventions, assessments performed and documented by Ita MOODY.
--- NOTE | 2022-05-04 18:39 | NUR ---
Problems reprioritized. Patient report given, questions answered & plan of care reviewed with Katerina MOODY.
--- NOTE | 2022-05-04 19:06 | NUR ---
Patient in room ORTHO 4010. I have received report from JOE OSORIO and had the opportunity to ask questions and assume patient care.
[2022-05-04] MEDS: lactose-reduced food (Ensure Enlive) - 237ml bottle PO SCH (19:41)
[2022-05-04] MEDS: lithium carbonate 150mg capsule PO SCH (21:42)
[2022-05-04 22:00] VITALS: BP 128/89
[2022-05-05] MEDS: dextrose 5%-water 1,000 ML IV SCH ×2 (05:44→19:36)
[2022-05-05 06:00] VITALS: BP 88/61
--- NOTE | 2022-05-05 06:40 | NUR ---
Patient in room ORTHO 4010. I have received report from Katerina MOODY and had the opportunity to ask questions and assume patient care.
--- NOTE | 2022-05-05 06:49 | NUR ---
Problems reprioritized. Patient report given, questions answered & plan of care reviewed with BRANDON MOODY. Addendum: 05/05/22 at 0659 by Katerina Sánchez RN Problems reprioritized. Patient report given, questions answered & plan of care reviewed with JOE MOODY, MISTAKENLY CHARTED I GAVE REPORT TO BRANDON.
[2022-05-05] MEDS: folic acid 1mg tablet PO SCH (07:13)
[2022-05-05] MEDS: pantoprazole 40mg Tablet.DR PO SCH ×2 (07:13→21:59)
[2022-05-05] MEDS: oxybutynin 5mg tablet PO SCH ×3 (07:13→21:58)
[2022-05-05] MEDS: thiamine 100mg tablet PO SCH (07:13)
[2022-05-05] MEDS: lactose-reduced food (Ensure Enlive) - 237ml bottle PO SCH ×2 (07:30→17:33)
[2022-05-05] MEDS: K and/or MAG REPLACEMENT MC SCH ×2 (08:00→20:00)
[2022-05-05] MEDS: CefTRIAXone inj 1,000 MG in dextrose 5%-water 50ml 50 ML IV SCH (08:27)
--- NOTE | 2022-05-05 09:30 | NUR ---
Agree with LINE DIRECTOR assessment. Pt pleasant and cooperative. Plan placement per case management.
[2022-05-05 10:00] VITALS: BP 92/70
[2022-05-05] MEDS: naltrexone 50mg tablet PO SCH (10:29)
[2022-05-05] MEDS: heparin, porcine 5000 units/ml vial SQ SCH ×2 (10:29→22:00)
--- NOTE | 2022-05-05 18:30 | NUR ---
Patient in room ORTHO 4010. I have received report from JOE and had the opportunity to ask questions and assume patient care.
--- NOTE | 2022-05-05 18:36 | NUR ---
Problems reprioritized. Patient report given, questions answered & plan of care reviewed with Sinai MOODY.
[2022-05-05 19:00] VITALS: BP 138/77
[2022-05-05] MEDS: lithium carbonate 150mg capsule PO SCH (21:59)
[2022-05-06] MEDS: acetaminophen 325mg tablet PO PRN ×3 (01:31→17:12)
[2022-05-06 07:39] VITALS: BP 98/69
--- NOTE | 2022-05-06 07:39 | NUR ---
received report from FRANSISCO Rawls
[2022-05-06] MEDS: K and/or MAG REPLACEMENT MC SCH ×2 (08:00→20:00)
[2022-05-06] MEDS: lactose-reduced food (Ensure Enlive) - 237ml bottle PO SCH ×2 (08:20→17:33)
[2022-05-06] MEDS: heparin, porcine 5000 units/ml vial SQ SCH ×2 (08:36→20:49)
[2022-05-06] MEDS: folic acid 1mg tablet PO SCH (08:36)
[2022-05-06] MEDS: pantoprazole 40mg Tablet.DR PO SCH ×2 (08:36→20:48)
[2022-05-06] MEDS: thiamine 100mg tablet PO SCH (08:36)
[2022-05-06] MEDS: oxybutynin 5mg tablet PO SCH ×3 (08:36→20:49)
[2022-05-06] MEDS: naltrexone 50mg tablet PO SCH (08:36)
[2022-05-06] MEDS: dextrose 5%-water 1,000 ML IV SCH ×2 (08:55→23:13)
[2022-05-06 10:00] VITALS: BP 101/67
[2022-05-06] MEDS: levoFLOXACIN 500mg tablet PO SCH (11:03)
[2022-05-06 18:00] VITALS: BP 130/79
--- NOTE | 2022-05-06 18:23 | NUR ---
report given to FRANSISCO Waldrop
--- NOTE | 2022-05-06 18:25 | NUR ---
Patient in room ORTHO 4009. I have received report from Bernadette MOODY and had the opportunity to ask questions and assume patient care. Addendum: 05/07/22 at 0035 by Palma Church RN Amended: Links added.
[2022-05-06] MEDS: lithium carbonate 150mg capsule PO SCH (20:49)
[2022-05-06 22:00] VITALS: BP 98/65
[2022-05-07] MEDS: acetaminophen 325mg tablet PO PRN ×2 (04:47→22:00)
--- NOTE | 2022-05-07 05:00 | NUR ---
Pt. was A & O this shift able to answer questions appropriately. Call light within reach and bed in low position. Addendum: 05/07/22 at 0655 by Palma Church RN Amended: Links added.
[2022-05-07 06:06] LABS: BASOPHILS % (AUTO) 0.6 % (0-1); EOSINOPHILS # (AUTO) 0.4 X10'3 (0-0.9); EOSINOPHILS % (AUTO) 5.8 % (0-6); HEMATOCRIT 28.6 % (35.0-45.0); HEMOGLOBIN 9.4 g/dl (12.0-16.0); LYMPHOCYTES # (AUTO) 1.1 X10'3 (1.1-4.8); LYMPHOCYTES % (AUTO) 13.9 % (21-51); MEAN CORPUSCULAR HGB CONC 32.8 g/dL (33.0-36.5); MEAN CORPUSCULAR VOLUME 94.4 FL (78-98); MEAN PLATELET VOLUME 8.4 FL (7.4-10.4); MONOCYTES # (AUTO) 0.6 X10'3 (0-0.9); MONOCYTES % (AUTO) 8.2 % (2-12); NEUTROPHILS # (AUTO) 5.5 X10'3 (1.8-7.7); NEUTROPHILS % (AUTO) 71.5 % (42-75); PLATELET COUNT 483 X10'3 (140-440); RED BLOOD COUNT 3.03 X10'6 (4.20-5.60); RED CELL DISTRIBUTION WIDTH 17.5 % (11.5-14.5); WHITE BLOOD COUNT 7.7 X10'3 (4.5-11.0)
[2022-05-07 06:08] LABS: ALBUMIN 2.7 G/DL (3.4-5.0); ANION GAP 6 (8-16); BLOOD UREA NITROGEN 22 MG/DL (7-18); BUN/CREATININE RATIO 11.3 (6.6-38.0); CALCIUM 9.9 MG/DL (8.5-10.1); CHLORIDE 101 MMOL/L (99-107); CREATININE 1.94 MG/DL (0.40-0.90); GLUCOSE 95 MG/DL (70-104); POTASSIUM 4.1 MMOL/L (3.5-5.1); SODIUM 133 MMOL/L (135-145); eGFR 26 ML/MIN
--- NOTE | 2022-05-07 06:10 | NUR ---
Report received from FRANSISCO Waldrop
--- NOTE | 2022-05-07 06:25 | NUR ---
Problems reprioritized. Patient report given, questions answered & plan of care reviewed with Bernadette MOODY. Addendum: 05/07/22 at 0707 by Palma Church RN Amended: Links added.
[2022-05-07 06:27] VITALS: BP 94/63
[2022-05-07] MEDS: lactose-reduced food (Ensure Enlive) - 237ml bottle PO SCH ×2 (07:38→17:43)
[2022-05-07] MEDS: K and/or MAG REPLACEMENT MC SCH ×2 (07:39→20:00)
[2022-05-07] MEDS: naltrexone 50mg tablet PO SCH (07:44)
[2022-05-07] MEDS: heparin, porcine 5000 units/ml vial SQ SCH ×2 (07:44→22:02)
[2022-05-07] MEDS: folic acid 1mg tablet PO SCH (07:44)
[2022-05-07] MEDS: thiamine 100mg tablet PO SCH (07:44)
[2022-05-07] MEDS: oxybutynin 5mg tablet PO SCH ×3 (07:44→21:57)
[2022-05-07] MEDS: pantoprazole 40mg Tablet.DR PO SCH ×2 (07:44→21:57)
--- NOTE | 2022-05-07 07:44 | NUR ---
Reassessment; Pt continues on Mechanical soft diet w/ low PO intake, avg 32% x 10 meals though has consumed 100% of first 4 ONS; meeting est nutrient needs at this time. Pt also receiving D5 at 70ml/hr providing an additional 285kcals/day. LBM 7/10 receiving PRN bowel care. No further nutrition interventions implemented at this time. Will continue to monitor. Recs: 1. Continue Regular/EC7 diet as tolerated; assist w/ meals 2. Ensure Enlive BIDBD: 3. Routine bowel care 4. Routine thiamine and folic acid given EtOH hx 5. Scaled wts Addendum: 05/07/22 at [address] Amended: Links added.
--- NOTE | 2022-05-07 08:21 | NUR ---
Patient has been attempting to get ahold of her daughters for the last two days with no luck, this RN has tried multiple times to call as well.
[2022-05-07 09:54] VITALS: BP 104/68
--- NOTE | 2022-05-07 10:00 | NUR ---
Spoke to director social regarding patient. This RN has tried multiple times to call patients daughters with line that is disconnected. Patient is in no shape to care for self and has been at home alone with daughters who were not taking care of her. Spoke to director social regarding this and if an APS report has been filed, which it was not. APS report filed per director social and intermediate accountant care liason to come evaluate patient.
[2022-05-07] MEDS: levoFLOXACIN 500mg tablet PO SCH (11:30)
[2022-05-07] MEDS: dextrose 5%-water 1,000 ML IV SCH (13:31)
[2022-05-07 18:00] VITALS: BP 121/80
--- NOTE | 2022-05-07 18:30 | NUR ---
Patient in room ORTHO 4010. I have received report from Bernadette Sotomayor and had the opportunity to ask questions and assume patient care. Addendum: 05/07/22 at 1844 by Palma Church RN Amended: Links added.
[2022-05-07] MEDS: lithium carbonate 150mg capsule PO SCH (21:57)
[2022-05-07 22:00] VITALS: BP 103/73
[2022-05-08] MEDS: dextrose 5%-water 1,000 ML IV SCH ×2 (02:07→18:07)
[2022-05-08 06:00] VITALS: BP 112/62
[2022-05-08] MEDS: thiamine 100mg tablet PO SCH (07:30)
[2022-05-08] MEDS: naltrexone 50mg tablet PO SCH (07:30)
[2022-05-08] MEDS: pantoprazole 40mg Tablet.DR PO SCH ×2 (07:30→21:17)
[2022-05-08] MEDS: lactose-reduced food (Ensure Enlive) - 237ml bottle PO SCH ×3 (07:30→18:30)
[2022-05-08] MEDS: heparin, porcine 5000 units/ml vial SQ SCH ×2 (07:31→21:17)
[2022-05-08] MEDS: folic acid 1mg tablet PO SCH (07:31)
[2022-05-08] MEDS: oxybutynin 5mg tablet PO SCH ×3 (07:31→21:18)
[2022-05-08] MEDS: K and/or MAG REPLACEMENT MC SCH ×2 (08:00→20:00)
[2022-05-08 10:00] VITALS: BP 98/67
[2022-05-08] MEDS: levoFLOXACIN 500mg tablet PO SCH (12:00)
--- NOTE | 2022-05-08 12:20 | NUR ---
Problems reprioritized. Patient report given, questions answered & plan of care reviewed with Mauri MOODY. Addendum: 05/08/22 at 1229 by Palma Church RN Amended: Links added.
--- NOTE | 2022-05-08 12:20 | NUR ---
Problems reprioritized. Patient report given, questions answered & plan of care reviewed with Mauri MOODY. Addendum: 05/08/22 at 1235 by Palma Church RN Amended: Links added.
--- NOTE | 2022-05-08 13:00 | NUR ---
Assumed care of pt. Pt awake and alert. Pt denied any discomfort at this time.
[2022-05-08] MEDS: magnesium hydroxide 30ml (MOM) UD suspension PO PRN (13:19)
--- NOTE | 2022-05-08 18:21 | NUR ---
Patient in room ORTHO 4010B. I have received report from Damian MOODY and had the opportunity to ask questions and assume patient care.
[2022-05-08 18:30] VITALS: BP 116/76
--- NOTE | 2022-05-08 18:37 | NUR ---
Pt is sitting up in bed. No s/s of distress or c/o pain. Pt is on RA. Pt has 22g to LLA and is infusing per MD order. No s/s of infiltration. BLL, call light within reach, frequently used items in reach, frequent rounding, cable inspector socks applied. will continue to monitor.
[2022-05-08] MEDS: lithium carbonate 150mg capsule PO SCH (21:19)
[2022-05-08 22:00] VITALS: BP 101/67
[2022-05-09] MEDS: acetaminophen 325mg tablet PO PRN ×2 (01:27→12:18)
[2022-05-09 06:00] VITALS: BP 91/61
--- NOTE | 2022-05-09 06:11 | NUR ---
Problems reprioritized. Patient report given, questions answered & plan of care reviewed with Gaby MOODY.
--- NOTE | 2022-05-09 06:30 | NUR ---
Patient in room ORTHO 4010. I have received report from Sara and had the opportunity to ask questions and assume patient care.
[2022-05-09] MEDS: K and/or MAG REPLACEMENT MC SCH ×2 (08:00→20:00)
[2022-05-09] MEDS: oxybutynin 5mg tablet PO SCH ×3 (09:34→20:19)
[2022-05-09] MEDS: folic acid 1mg tablet PO SCH (09:35)
[2022-05-09] MEDS: naltrexone 50mg tablet PO SCH (09:35)
[2022-05-09] MEDS: thiamine 100mg tablet PO SCH (09:36)
[2022-05-09] MEDS: pantoprazole 40mg Tablet.DR PO SCH ×2 (09:36→20:19)
[2022-05-09] MEDS: heparin, porcine 5000 units/ml vial SQ SCH ×2 (09:38→20:19)
[2022-05-09 10:00] VITALS: BP 95/61
[2022-05-09] MEDS: levoFLOXACIN 250mg tablet PO SCH (12:19)
[2022-05-09] MEDS: lactose-reduced food (Ensure Enlive) - 237ml bottle PO SCH (17:30)
--- NOTE | 2022-05-09 18:20 | NUR ---
Problems reprioritized. Patient report given, questions answered & plan of care reviewed with Sara.
[2022-05-09 18:30] VITALS: BP 119/83
--- NOTE | 2022-05-09 18:32 | NUR ---
Patient in room ORTHO 4010B. I have received report from Gaby MOODY and had the opportunity to ask questions and assume patient care.
[2022-05-09] MEDS: lithium carbonate 150mg capsule PO SCH (20:20)
[2022-05-09 22:00] VITALS: BP 101/70
[2022-05-10 00:34] LABS: ALANINE AMINOTRANSFERASE 20 U/L (12-78); ALBUMIN 2.8 G/DL (3.4-5.0); ALBUMIN/GLOBULIN RATIO 0.6 (1.1-1.5); ALKALINE PHOSPHATASE 114 IU/L (46-116); ANION GAP 3 (8-16); ASPARTATE AMINO TRANSFERASE 14 U/L (10-37); BILIRUBIN,TOTAL 0.2 MG/DL (0.1-1.0); BLOOD UREA NITROGEN 37 MG/DL (7-18); BUN/CREATININE RATIO 19.2 (6.6-38.0); CHLORIDE 101 MMOL/L (99-107); CREATININE 1.93 MG/DL (0.40-0.90); GLUCOSE 95 MG/DL (70-104); POTASSIUM 4.6 MMOL/L (3.5-5.1); SODIUM 133 MMOL/L (135-145); TOTAL CARBON DIOXIDE 28.6 MMOL/L (24-32); TOTAL PROTEIN 7.7 G/DL (6.4-8.2); eGFR 26 ML/MIN
[2022-05-10 06:04] VITALS: BP 90/55
--- NOTE | 2022-05-10 06:22 | NUR ---
Change of shift. Pt is resting comfortably in bed. Pt on RA. No s/s of distress. BLL, call light within reach, frequently used items in reach, frequent rounding, fleet coordinator socks on. Will continue to monitor.
[2022-05-10] MEDS: oxybutynin 5mg tablet PO SCH ×3 (07:03→19:57)
[2022-05-10] MEDS: pantoprazole 40mg Tablet.DR PO SCH ×2 (07:03→19:57)
[2022-05-10] MEDS: thiamine 100mg tablet PO SCH (07:03)
[2022-05-10] MEDS: folic acid 1mg tablet PO SCH (07:03)
[2022-05-10] MEDS: heparin, porcine 5000 units/ml vial SQ SCH ×2 (07:05→19:56)
[2022-05-10] MEDS: naltrexone 50mg tablet PO SCH (07:14)
[2022-05-10] MEDS: K and/or MAG REPLACEMENT MC SCH ×2 (07:16→20:00)
[2022-05-10] MEDS: lactose-reduced food (Ensure Enlive) - 237ml bottle PO SCH ×2 (07:30→17:30)
[2022-05-10 10:00] VITALS: BP 91/53
[2022-05-10] MEDS: levoFLOXACIN 250mg tablet PO SCH (11:45)
--- NOTE | 2022-05-10 14:20 | NUR ---
Problems reprioritized. Patient report given, questions answered & plan of care reviewed with Alesia MOODY.
--- NOTE | 2022-05-10 15:00 | NUR ---
Assumed care from FRANSISCO Ruiz.
--- NOTE | 2022-05-10 15:59 | NUR ---
PT notified me that pt has "vesicles" on her L buttock. Pt stated she's had "a long time, and they're smaller now" Photo taken. Discussed appearance w/ suzanne RN, and text on [employer] placed to for her to assess it / rule out shingles, or other. Rtn call pending.
[2022-05-10 18:00] VITALS: BP 117/72
--- NOTE | 2022-05-10 18:20 | NUR ---
Report given to FRANSISCO Rodriguez, and Kristie Buttock rash was viewed at bedside. Dr. Encinas has yet to assess site. Charge RNs, Damian and tuan Burdick were made aware.
--- NOTE | 2022-05-10 19:10 | NUR ---
Patient in room ORTHO 4010. I have received report from FRANSISCO CUEVA and had the opportunity to ask questions and assume patient care. Addendum: 05/10/22 at 1910 by Jennifer Rodríguez RN Amended: Links added.
--- NOTE | 2022-05-10 19:20 | NUR ---
noted left butt cheek with raised pustile looking spots that Dr Encinas was called to check earlier in the day. it appears like it could be shingles. pt moved from room 4010b to 4020b and isolated as a precaution to protect the other roommate and staff.
--- NOTE | 2022-05-10 19:20 | NUR ---
pt inc of urine skin care done and creams applied to perinea. pt repositioned in bed.
[2022-05-10] MEDS: lithium carbonate 150mg capsule PO SCH (19:57)
[2022-05-10 22:00] VITALS: BP 101/70
--- NOTE | 2022-05-10 23:45 | NUR ---
PT C/O PAIN GLASS BLOWING INSTRUCTOR WENT IN TO MEDICATED PT WITH PO TYLENOL FOR THIS.
[2022-05-10] MEDS: acetaminophen 325mg tablet PO PRN (23:49)
--- NOTE | 2022-05-10 23:50 | NUR ---
called while I was in the pt's room asking to talk to the nurse regarding the skin issue that staff nurse believes the skin issue is shingles. I was not able to talk to the doctor due to being in the patient's room ;and the doctor said she would look at the pt's skin in the morning and was wondering why patient was put in shingle isolation but she would follow up with that tomorrow too.
--- NOTE | 2022-05-11 01:50 | NUR ---
pt repositioned in bed.
--- NOTE | 2022-05-11 05:26 | NUR ---
pt inc spilled water in the bed as well. complete bed lien change and new wick applied. pt encouraged to use the sippy cup,
[2022-05-11 06:00] VITALS: BP 96/69
--- NOTE | 2022-05-11 07:14 | NUR ---
Problems reprioritized. Patient report given, questions answered & plan of care reviewed with FRANSISCO PEACE. Addendum: 05/11/22 at 0714 by Jennifer Rodríguez RN Amended: Links added.
[2022-05-11] MEDS: lactose-reduced food (Ensure Enlive) - 237ml bottle PO SCH ×2 (07:30→17:55)
[2022-05-11] MEDS: K and/or MAG REPLACEMENT MC SCH ×2 (08:00→20:00)
[2022-05-11] MEDS: oxybutynin 5mg tablet PO SCH ×3 (09:16→20:23)
[2022-05-11] MEDS: heparin, porcine 5000 units/ml vial SQ SCH ×2 (09:16→20:22)
[2022-05-11] MEDS: levoFLOXACIN 250mg tablet PO SCH (09:16)
[2022-05-11] MEDS: thiamine 100mg tablet PO SCH (09:16)
[2022-05-11] MEDS: naltrexone 50mg tablet PO SCH (09:16)
[2022-05-11] MEDS: folic acid 1mg tablet PO SCH (09:16)
[2022-05-11] MEDS: pantoprazole 40mg Tablet.DR PO SCH ×2 (09:16→20:23)
[2022-05-11 10:00] VITALS: BP 104/63
[2022-05-11] MEDS: valacyclovir 500mg tablet PO SCH (17:08)
[2022-05-11 18:00] VITALS: BP 106/63
--- NOTE | 2022-05-11 18:46 | NUR ---
Patient in room ORTHO 4020. I have received report from NATA MOODY and had the opportunity to ask questions and assume patient care.
[2022-05-11] MEDS: lithium carbonate 150mg capsule PO SCH (20:23)
[2022-05-11 22:00] VITALS: BP 91/58
[2022-05-12] MEDS: valacyclovir 500mg tablet PO SCH ×3 (00:54→17:12)
[2022-05-12 04:47] LABS: BASOPHILS # (AUTO) 0.1 X10'3 (0-0.2); BASOPHILS % (AUTO) 0.9 % (0-1); EOSINOPHILS # (AUTO) 0.3 X10'3 (0-0.9); EOSINOPHILS % (AUTO) 3.6 % (0-6); HEMATOCRIT 27.4 % (35.0-45.0); HEMOGLOBIN 9.2 g/dl (12.0-16.0); LYMPHOCYTES # (AUTO) 1.5 X10'3 (1.1-4.8); LYMPHOCYTES % (AUTO) 18.9 % (21-51); MEAN CORPUSCULAR HEMOGLOBIN 32.6 PG (27.0-31.0); MEAN CORPUSCULAR HGB CONC 33.6 g/dL (33.0-36.5); MEAN CORPUSCULAR VOLUME 96.8 FL (78-98); MEAN PLATELET VOLUME 8.6 FL (7.4-10.4); MONOCYTES # (AUTO) 0.7 X10'3 (0-0.9); MONOCYTES % (AUTO) 8.6 % (2-12); NEUTROPHILS # (AUTO) 5.4 X10'3 (1.8-7.7); PLATELET COUNT 455 X10'3 (140-440); RED BLOOD COUNT 2.84 X10'6 (4.20-5.60); RED CELL DISTRIBUTION WIDTH 17.4 % (11.5-14.5)
[2022-05-12 05:14] LABS: ALBUMIN 2.9 G/DL (3.4-5.0); ANION GAP 6 (8-16); BLOOD UREA NITROGEN 43 MG/DL (7-18); BUN/CREATININE RATIO 19.8 (6.6-38.0); CALCIUM 10.1 MG/DL (8.5-10.1); CHLORIDE 102 MMOL/L (99-107); CREATININE 2.17 MG/DL (0.40-0.90); GLUCOSE 102 MG/DL (70-104); POTASSIUM 4.3 MMOL/L (3.5-5.1); SODIUM 136 MMOL/L (135-145); TOTAL CARBON DIOXIDE 27.9 MMOL/L (24-32); eGFR 23 ML/MIN
[2022-05-12 06:00] VITALS: BP 110/56
--- NOTE | 2022-05-12 06:43 | NUR ---
REPORT GIVEN TO DAISY MOODY
--- NOTE | 2022-05-12 07:06 | NUR ---
Patient in room ORTHO 4020. I have received report from Katerina MOODY and had the opportunity to ask questions and assume patient care.
[2022-05-12] MEDS: lactose-reduced food (Ensure Enlive) - 237ml bottle PO SCH ×2 (07:30→17:34)
[2022-05-12] MEDS: K and/or MAG REPLACEMENT MC SCH ×2 (08:00→20:00)
--- NOTE | 2022-05-12 08:41 | NUR ---
Reassessment; Pt continues on Mechanical soft diet w/ improvement in PO intake, avg 70% x 10 meals and mostly 100% intake of ONS; meeting est nutrient needs at this time. LBM 05/11 receiving PRN bowel care. No further nutrition interventions implemented at this time. Will continue to monitor. Recs: 1. Continue Regular/EC7 diet as tolerated; assist w/ meals 2. Ensure Enlive BIDBD: 3. Routine bowel care 4. Routine thiamine and folic acid given EtOH hx 5. Scaled wts Addendum: 05/12/22 at [address] Amended: Links added.
--- NOTE | 2022-05-12 09:06 | NUR ---
Problems reprioritized. Patient report given, questions answered & plan of care reviewed with Bernadette MOODY.
[2022-05-12] MEDS: naltrexone 50mg tablet PO SCH (10:22)
[2022-05-12] MEDS: levoFLOXACIN 250mg tablet PO SCH (10:22)
[2022-05-12] MEDS: thiamine 100mg tablet PO SCH (10:22)
[2022-05-12] MEDS: oxybutynin 5mg tablet PO SCH ×3 (10:22→21:37)
[2022-05-12] MEDS: pantoprazole 40mg Tablet.DR PO SCH ×2 (10:22→21:37)
[2022-05-12] MEDS: folic acid 1mg tablet PO SCH (10:23)
[2022-05-12] MEDS: heparin, porcine 5000 units/ml vial SQ SCH ×2 (10:23→21:40)
[2022-05-12 11:52] VITALS: BP 113/71
[2022-05-12] MEDS: normal saline 1000ml 1,000 ML IV SCH (12:00)
[2022-05-12 18:00] VITALS: BP 114/64
--- NOTE | 2022-05-12 18:30 | NUR ---
Patient in room ORTHO 4020. I have received report from Bernadette MOODY and had the opportunity to ask questions and assume patient care.
--- NOTE | 2022-05-12 18:38 | NUR ---
report given to FRANSISCO Carrasco
[2022-05-12] MEDS: lithium carbonate 150mg capsule PO SCH (21:36)
[2022-05-12 22:00] VITALS: BP 115/58
[2022-05-13] MEDS: valacyclovir 500mg tablet PO SCH ×3 (00:18→16:33)
[2022-05-13 08:00] VITALS: BP 86/61
[2022-05-13] MEDS: normal saline 1000ml 1,000 ML IV SCH (08:00)
[2022-05-13] MEDS: K and/or MAG REPLACEMENT MC SCH (08:00)
[2022-05-13] MEDS: lactose-reduced food (Ensure Enlive) - 237ml bottle PO SCH ×2 (08:18→17:36)
[2022-05-13] MEDS: naltrexone 50mg tablet PO SCH (09:00)
[2022-05-13] MEDS: oxybutynin 5mg tablet PO SCH ×2 (09:00→13:00)
[2022-05-13] MEDS: thiamine 100mg tablet PO SCH (09:00)
[2022-05-13] MEDS: pantoprazole 40mg Tablet.DR PO SCH (09:00)
[2022-05-13] MEDS: heparin, porcine 5000 units/ml vial SQ SCH (09:01)
[2022-05-13] MEDS: folic acid 1mg tablet PO SCH (09:01)
--- NOTE | 2022-05-13 09:27 | NUR ---
sent message to social media marketing analyst regarding updated phone numbers for daughters
[2022-05-13 10:22] VITALS: BP 96/65
--- NOTE | 2022-05-13 10:30 | NUR ---
PAGER ID: [phone] MESSAGE: [phone], Damir can I dc her iv fluids please. thanks myles [phone]
[2022-05-13] MEDS: bisacodyl 10mg suppository rectal RC PRN (11:20)
[2022-05-13] MEDS: levoFLOXACIN 250mg tablet PO SCH (11:20)
--- NOTE | 2022-05-13 11:37 | NUR ---
Suppository given since patient has not had a bowel movement since 05/06
--- NOTE | 2022-05-13 14:33 | NUR ---
Daughter present at bedside, this RN called social security assessor. lasting floorworker is present at bedside.
--- NOTE | 2022-05-13 15:34 | NUR ---
Per SHABBIR Elkins, Dtr Yesenia Reich ([phone]) stated she would like to take pt home today. I spoke w/ dtr and she states she routinely assts w/ personal care and mobilization at home. She stated the pt has a WC at home. Dr Madsen was notified via [facility], and DC orders are pending.
--- NOTE | 2022-05-13 15:56 | NUR ---
PAGER ID: [phone] MESSAGE: [phone], Damir patients daughter came to bedside and spoke with claire and she wants to take her home patient is refusing correction care. daughter can be here in an hour I just need discharge orders please. myles [phone]
[2022-05-13] MEDS ORDERED: VALA500T41 PO (15:59)
--- NOTE | 2022-05-13 17:05 | NUR ---
daughter to come order picker/assembler patient, all discharge instructions given to patient and daughter. daughter was set to be here by 1700, iv out and in a brief daughter chelsea is to bring clothes and wheelchair for discharge.
--- NOTE | 2022-05-13 17:35 | NUR ---
patients daughter called and they are in a big truck they are going to go home and get appropriate car to get patient in for discharge. all instructions have been given to patient and daughter they just need to help her get dressed and into the car.
[2022-05-13 18:00] VITALS: BP 113/80
--- NOTE | 2022-05-13 18:19 | NUR ---
Report given FRANSISCO Carrasco
--- NOTE | 2022-05-13 18:25 | NUR ---
Patient in room ORTHO 4020. I have received report from Bernadette and had the opportunity to ask questions and assume patient care.
--- NOTE | 2022-05-13 19:00 | NUR ---
Patients daughter arrived to take mom home. Went over the discharge instructions with the daughter, and reminded her to tile picker the prescription tonight at [facility] in [place]. Reminded patient that she needs to have a follow up visit with her PcP in 1 week. Both patient and her daughter acknowledged this stating that they would. All belongings packed up in patient bag and patient wheeled down to the lobby by an aide. Patient alert and in no pain at this time. Patient taken home in a private vehicle.
== END 2022-05-13 19:14 | disposition home health service (06) | DRG 91 ==
LOC: ER 07:47 → ED HOLD 16:25 → PCU 3S 04-30 05:38 → ORTHO 4S 05-03 22:07
PROVIDERS: ADMIT Family Medicine; ATTEND Family Medicine
DX: G92.8 Other toxic encephalopathy (principal); N17.0 Acute kidney failure with tubular necrosis; E87.0 Hyperosmolality and hypernatremia; E87.2 Acidosis; N13.6 Pyonephrosis; R78.81 Bacteremia; N18.9 Chronic kidney disease, unspecified; D64.9 Anemia, unspecified; B95.1 Streptococcus, group B, as the cause of diseases classified elsewhere; E83.41 Hypermagnesemia; W18.39XA Other fall on same level, initial encounter; E87.5 Hyperkalemia; B02.9 Zoster without complications; F10.20 Alcohol dependence, uncomplicated; F31.9 Bipolar disorder, unspecified; T43.595A Adverse effect of other antipsychotics and neuroleptics, initial encounter; Y92.89 Other specified places as the place of occurrence of the external cause; Y93.89 Activity, other specified; Y99.8 Other external cause status
CPT/HCPCS: 36415; 70450; 70486; 71045; 72125; 73030; 74176; 80048; 80053; 80178; 80305; 80320; 81001; 82140; 83605; 83735; 84100; 84132; 84145; 84484; 85025; 87040; 87077; 87081; 87088; 87186; 93005; 97110; 97116; 97161; 97530; 97535; 99285; A4314; A4353; A6212; A6213; A6250; A6449; A6455; G0378; J0696; J1644; J2270; J2405; J3360; J3490; J7030; J7042; J7060; J7070; J7120

== ENCOUNTER 2023-03-18 05:36 | Inpatient (IN) | payer BC, MEDICARE ==
[2023-03-11 16:47] LABS: BASOPHILS # (AUTO) 0.1 X10'3 (0-0.2); EOSINOPHILS # (AUTO) 0.3 X10'3 (0-0.9); EOSINOPHILS % (AUTO) 3.7 % (0-6); HEMATOCRIT 36.8 % (35.0-45.0); HEMOGLOBIN 12.4 g/dl (12.0-16.0); LYMPHOCYTES # (AUTO) 1.6 X10'3 (1.1-4.8); LYMPHOCYTES % (AUTO) 20.5 % (21-51); MEAN CORPUSCULAR HEMOGLOBIN 32.9 PG (27.0-31.0); MEAN CORPUSCULAR HGB CONC 33.7 g/dL (33.0-36.5); MEAN CORPUSCULAR VOLUME 97.5 FL (78-98); MEAN PLATELET VOLUME 7.8 FL (7.4-10.4); MONOCYTES # (AUTO) 0.8 X10'3 (0-0.9); MONOCYTES % (AUTO) 10.1 % (2-12); NEUTROPHILS # (AUTO) 4.9 X10'3 (1.8-7.7); NEUTROPHILS % (AUTO) 64.7 % (42-75); PLATELET COUNT 392 X10'3 (140-440); RED BLOOD COUNT 3.77 X10'6 (4.20-5.60); RED CELL DISTRIBUTION WIDTH 15.9 % (11.5-14.5); WHITE BLOOD COUNT 7.6 X10'3 (4.5-11.0)
[2023-03-11 16:57] LABS: CLARITY,URINE CLEAR (Clear); COLOR,URINE YELLOW (Yellow); GLUCOSE, URINE NEGATIVE (Neg); KETONES,URINE NEGATIVE (Neg); LEUKOCYTE ESTERASE ,URINE LARGE (Neg); NITRITES, URINE NEGATIVE (Neg); OCCULT BLOOD,URINE MODERATE (Neg); PH,URINE 7.5 (4.8-8.0); PROTEIN,URINE 100 mg/dl (Neg); UROBILINOGEN,URINE 0.2 E.U/dL (0.2-1.0)
[2023-03-11 17:02] LABS: ALANINE AMINOTRANSFERASE 12 U/L (12-78); ALBUMIN 3.6 G/DL (3.4-5.0); ALBUMIN/GLOBULIN RATIO 0.7 (1.1-1.5); ALKALINE PHOSPHATASE 119 IU/L (46-116); ANION GAP 8 (8-16); ASPARTATE AMINO TRANSFERASE 11 U/L (10-37); BILIRUBIN,TOTAL 0.3 MG/DL (0.1-1.0); BLOOD UREA NITROGEN 46 MG/DL (7-18); BUN/CREATININE RATIO 24.2 (10.0-20.0); CALCIUM 9.8 MG/DL (8.5-10.1); CHLORIDE 103 MMOL/L (99-107); GLUCOSE 100 MG/DL (70-104); POTASSIUM 4.1 MMOL/L (3.5-5.1); SODIUM 138 MMOL/L (135-145); TOTAL PROTEIN 8.8 G/DL (6.4-8.2); eGFR 27 ML/MIN
[2023-03-11 17:05] LABS: UA COLLECTION TYPE CLN CATCH MIDSTREAM
[2023-03-11 17:06] LABS: WBC,URINE TNTC /HPF (0-4)
[2023-03-11 17:07] LABS: BACTERIA,URINE 4+ /HPF (Neg); SQUAMOUS EPITHELIAL CELL,UR FEW /LPF (FEW)
[2023-03-18] VITALS (19 sets, daily range): BP systolic 87–121; BP diastolic 43–82
[~2023-03-18] VITALS: Ht 165.1 cm; Wt 97.4 kg
[~2023-03-18 05:36] MED LIST changes: +BUSP10TA11 PO; -CHOL500049 PO; +DOCUMENT DATE & TIME OF BETA-BLOCKER PO ONE; -LITH300C PO; -MAGN296S68 PO; +METO-395 PO; +OXYB5TAB16 PO; -PANT-47 PO; -THIA100T70 PO; -TRAM100C3 PO; +cefazolin 2gm/D5W 100mL 100 ML IV ONE; +famotidine 20mg tablet PO ONE
[2023-03-18] MEDS: normal saline 1000ml 500 ML IV SCH (06:25)
--- NOTE | 2023-03-18 07:12 | NUR ---
PATIENT STATES THAT HER TWO CHILDREN ARE BEING EVICTED BY PATIENT. STATES THEY "DON'T PAY AND SOON I'M RECOVERED I'M KICKING THEM OUT. THEY DO DRUGS AND I DON'T SO THEY NEED TO GET OUT". Addendum: 03/18/23 at 0733 by Morteza Tovar RN, RN Amended: Links added.
[2023-03-18] MEDS ORDERED: desflurane 240ml liquid inh. IH ONE (08:18)
[2023-03-18] MEDS ORDERED: PHENYLephrine 10mg/ml 5ml injection IV ONE (08:18)
[2023-03-18] MEDS ORDERED: dexmedetomidine 200mcg/2ml inj. IV ONE (08:20)
[2023-03-18] MEDS ORDERED: sugammadex 200mg/2ml injection IV ONE (08:20)
[2023-03-18] MEDS ORDERED: midazolam 1 mg/ML 2ml injection ONE (08:21)
[2023-03-18] MEDS ORDERED: fentaNYL/PF 50MCG/1 ML 2ML syringe ONE (08:21)
[2023-03-18] MEDS ORDERED: ondansetron/PF 4mg/2ml inj ONE (08:33)
[2023-03-18] MEDS ORDERED: rocuronium 10mg/ml inj IV ONE (08:33)
[2023-03-18] MEDS ORDERED: dexamethasone sod phosphate 4mg/ml inj. ONE (08:33)
[2023-03-18] MEDS ORDERED: propofol inj 20 ML IV ONE (08:33)
[2023-03-18] MEDS ORDERED: LIDOcaine 2% (20mg/ml) 5ml vial ONE (08:33)
[2023-03-18] MEDS ORDERED: BUPIVAcaine/PF 2.5 mg/ml (0.25%) 30ml vial ONE (08:34)
[2023-03-18] MEDS ORDERED: morphine 2 MG/ML inj. syringe IV PRN (08:55)
[2023-03-18] MEDS ORDERED: ondansetron/PF 4mg/2ml inj IV PRN ×2 (08:55→12:40)
[2023-03-18] MEDS ORDERED: ringers solution, lacted 1,000 ML IV SCH (08:55)
[2023-03-18] MEDS ORDERED: hydrALAZINE 20mg/ml inj. IV PRN (08:55)
[2023-03-18] MEDS ORDERED: fentaNYL/PF 50MCG/1 ML 2ML syringe IV PRN (08:55)
[2023-03-18] MEDS ORDERED: labetalol 20mg/4ml (5mg/ml) syringe IV PRN (08:55)
[2023-03-18] MEDS ORDERED: BUPIVAcaine/PF 2.5 mg/ml (0.25%) 30ml vial IJ ONE (09:01)
[2023-03-18] MEDS ORDERED: bacitracin 15gm ointment TP ONE (09:06)
--- NOTE | 2023-03-18 09:45 | NUR ---
Received from OR via [facility], accompanied by Anesthesiologist DR BROOKE and report given by Anesthesiolgist. PT PRESENTS WITH PIV 20 G LEFT FOREARM, 20G LRIGHT HAND, SP02 97% 6L MASK, LR RUNNING AT 100MLS/HR, ABD DRESSING CDI, VSS. Addendum: 03/18/23 at 1009 by Yarely Tovar RN, RN Amended: Links added.
[2023-03-18] MEDS: fentaNYL/PF 50MCG/1 ML 2ML syringe IV PRN ×2 (10:03→10:09)
[2023-03-18] MEDS: morphine 4 MG/ML inj SYRINge IV PRN ×2 (10:12→10:23)
[2023-03-18] MEDS ORDERED: naloxone 0.4 mg/ml inj IV PRN (12:40)
[2023-03-18] MEDS ORDERED: HYDROcodone/acetaminophen 5mg/325mg tablet PO PRN (12:40)
[2023-03-18] MEDS ORDERED: ipratropium/albuterol 3ml nebule NEB PRN (14:30)
[2023-03-18] MEDS: cefazolin 2gm/D5W 100mL 100 ML IV SCH ×2 (16:14→23:48)
[2023-03-18] MEDS: HYDROcodone/acetaminophen 10/325mg tab PO PRN ×2 (16:18→20:33)
--- NOTE | 2023-03-18 18:00 | NUR ---
Patient in room ORTHO 4009. I have received report from Mandi MOODY and had the opportunity to ask questions and assume patient care.
--- NOTE | 2023-03-18 18:33 | NUR ---
Problems reprioritized. Patient report given, questions answered & plan of care reviewed with FRANSISCO Box.
[2023-03-19] MEDS: HYDROcodone/acetaminophen 10/325mg tab PO PRN ×5 (00:46→23:03)
[2023-03-19 02:43] VITALS: BP 138/83
[2023-03-19 06:00] VITALS: BP 104/66
--- NOTE | 2023-03-19 06:28 | NUR ---
Patient in room ORTHO 4009. I have received report from FRANSISCO Box and had the opportunity to ask questions and assume patient care.
[2023-03-19] MEDS: normal saline 1000ml 500 ML IV SCH (06:30)
[2023-03-19 06:55] LABS: ALBUMIN 2.6 G/DL (3.4-5.0); ANION GAP 6 (8-16); BLOOD UREA NITROGEN 37 MG/DL (7-18); BUN/CREATININE RATIO 16.7 (10.0-20.0); CHLORIDE 108 MMOL/L (99-107); CREATININE 2.22 MG/DL (0.40-0.90); GLUCOSE 131 MG/DL (70-104); POTASSIUM 4.6 MMOL/L (3.5-5.1); SODIUM 139 MMOL/L (135-145); TOTAL CARBON DIOXIDE 25.3 MMOL/L (24-32); eGFR 22 ML/MIN
[2023-03-19 06:56] LABS: BASOPHILS % (AUTO) 0.1 % (0-1); EOSINOPHILS % (AUTO) 0.1 % (0-6); HEMATOCRIT 31.4 % (35.0-45.0); HEMOGLOBIN 10.2 g/dl (12.0-16.0); LYMPHOCYTES # (AUTO) 0.9 X10'3 (1.1-4.8); LYMPHOCYTES % (AUTO) 7.4 % (21-51); MEAN CORPUSCULAR HEMOGLOBIN 32.3 PG (27.0-31.0); MEAN CORPUSCULAR HGB CONC 32.6 g/dL (33.0-36.5); MEAN PLATELET VOLUME 7.8 FL (7.4-10.4); MONOCYTES # (AUTO) 1.1 X10'3 (0-0.9); MONOCYTES % (AUTO) 9.5 % (2-12); NEUTROPHILS # (AUTO) 9.6 X10'3 (1.8-7.7); NEUTROPHILS % (AUTO) 82.9 % (42-75); PLATELET COUNT 321 X10'3 (140-440); RED BLOOD COUNT 3.17 X10'6 (4.20-5.60); RED CELL DISTRIBUTION WIDTH 15.9 % (11.5-14.5); WHITE BLOOD COUNT 11.6 X10'3 (4.5-11.0)
[2023-03-19 10:00] VITALS: BP 105/57
[2023-03-19 18:00] VITALS: BP 117/69
--- NOTE | 2023-03-19 18:26 | NUR ---
Problems reprioritized. Patient report given, questions answered & plan of care reviewed with FRANSISCO Young.
--- NOTE | 2023-03-19 18:54 | NUR ---
Patient in room ORTHO 4009. I have received report from FRANSISCO Raymond and had the opportunity to ask questions and assume patient care. Addendum: 03/19/23 at 1854 by Hannah Villa RN Amended: Links added.
[2023-03-19 22:00] VITALS: BP 112/70
[2023-03-20] MEDS: HYDROcodone/acetaminophen 10/325mg tab PO PRN ×4 (03:17→16:16)
[2023-03-20 06:00] VITALS: BP 104/61
--- NOTE | 2023-03-20 06:29 | NUR ---
Problems reprioritized. Patient report given, questions answered & plan of care reviewed with FRANSISCO Young.
[2023-03-20 06:31] LABS: BASOPHILS % (AUTO) 0.4 % (0-1); EOSINOPHILS # (AUTO) 0.2 X10'3 (0-0.9); HEMATOCRIT 30.2 % (35.0-45.0); HEMOGLOBIN 10.2 g/dl (12.0-16.0); LYMPHOCYTES # (AUTO) 1.2 X10'3 (1.1-4.8); LYMPHOCYTES % (AUTO) 16.5 % (21-51); MEAN CORPUSCULAR HEMOGLOBIN 33.3 PG (27.0-31.0); MEAN CORPUSCULAR HGB CONC 33.7 g/dL (33.0-36.5); MEAN CORPUSCULAR VOLUME 98.7 FL (78-98); MONOCYTES # (AUTO) 0.6 X10'3 (0-0.9); MONOCYTES % (AUTO) 8.9 % (2-12); NEUTROPHILS # (AUTO) 5.2 X10'3 (1.8-7.7); NEUTROPHILS % (AUTO) 71.2 % (42-75); PLATELET COUNT 297 X10'3 (140-440); RED BLOOD COUNT 3.06 X10'6 (4.20-5.60); RED CELL DISTRIBUTION WIDTH 15.5 % (11.5-14.5); WHITE BLOOD COUNT 7.2 X10'3 (4.5-11.0)
--- NOTE | 2023-03-20 06:34 | NUR ---
Problems reprioritized. Patient report given, questions answered & plan of care reviewed with FRANSISCO Raymond. Addendum: 03/20/23 at 0634 by Hannah Villa RN Amended: Links added.
[2023-03-20 06:42] LABS: ALBUMIN 2.5 G/DL (3.4-5.0); ANION GAP 6 (8-16); BLOOD UREA NITROGEN 35 MG/DL (7-18); BUN/CREATININE RATIO 17.9 (10.0-20.0); CALCIUM 9.1 MG/DL (8.5-10.1); CHLORIDE 108 MMOL/L (99-107); CREATININE 1.95 MG/DL (0.40-0.90); GLUCOSE 98 MG/DL (70-104); POTASSIUM 4.3 MMOL/L (3.5-5.1); SODIUM 140 MMOL/L (135-145); TOTAL CARBON DIOXIDE 26.2 MMOL/L (24-32); eGFR 26 ML/MIN
[2023-03-20] MEDS: normal saline 1000ml 500 ML IV SCH (08:05)
[2023-03-20 10:00] VITALS: BP 111/69
--- NOTE | 2023-03-20 17:17 | NUR ---
Patient was discharged at 1627 with instructions verbalizing understanding of instructions in wheelchair accompanied by nursing staff and family going home via private vehicle. All lines and tubes including PIV with cannula intact have been removed. Education has been provided at bedside and all questions have been answered. Medication has been called in by Dr. Chen. Patient is stable and appropriate for discharge.
== END 2023-03-20 16:27 | disposition home or self-care (01) | DRG 336 ==
LOC: PAS 05:36 → PAS IN 12:41 → ORTHO 4S 15:15 → OBSVTOIN 03-19 09:00
PROVIDERS: ADMIT Surgery; ATTEND Surgery
PROC: 0WUF4JZ Supplement Abdominal Wall with Synthetic Substitute, Percutaneous Endoscopic Approach (ICD-10-PCS; principal; 2023-03-19)
PROC: 0DNU4ZZ Release Omentum, Percutaneous Endoscopic Approach (ICD-10-PCS; 2023-03-19)
PROC: 0KQ Muscles, Repair (ICD-10-PCS; 2023-03-19)
DX: K43.2 Incisional hernia without obstruction or gangrene (principal); N18.4 Chronic kidney disease, stage 4 (severe); E11.22 Type 2 diabetes mellitus with diabetic chronic kidney disease; M62.08 Separation of muscle (nontraumatic), other site; I12.9 Hypertensive chronic kidney disease with stage 1 through stage 4 chronic kidney disease, or unspecified chronic kidney disease; F41.9 Anxiety disorder, unspecified; Z87.891 Personal history of nicotine dependence
CPT/HCPCS: Z7506; Z7508; 36415; 80048; 80053; 81001; 82948; 85025; 87077; 87081; 87088; 87186; 93005; 94760; A4615; A4618; A6258; A7000; C1713; C1781; G0378; J0690; J1100; J2250; J2270; J2370; J2405; J2704; J3010; J3490; J7030; J7040; J7120

== ENCOUNTER 2024-01-29 11:08 | Inpatient (IN) | payer BC, MEDICARE ==
[~2024-01-29] VITALS: Ht 165.1 cm; Wt 54.5 kg
[~2024-01-29 11:08] MED LIST changes: -DOCUMENT DATE & TIME OF BETA-BLOCKER PO ONE; -OXYB5TAB16 PO; +OXYB5TAB21 PO; -cefazolin 2gm/D5W 100mL 100 ML IV ONE; -famotidine 20mg tablet PO ONE
[2024-01-29] MEDS: normal saline 1000ml 1,000 ML IV ONE ×2 (12:00→17:16)
[2024-01-29] MEDS: normal saline 1000ML IV soln IVB ONE (12:12)
[2024-01-29 12:20] LABS: BASOPHILS # (AUTO) 0.1 X10'3 (0-0.2); BASOPHILS % (AUTO) 0.3 % (0-1); EOSINOPHILS % (AUTO) 0.1 % (0-6); HEMATOCRIT 40.7 % (35.0-45.0); HEMOGLOBIN 13.5 g/dl (12.0-16.0); LYMPHOCYTES # (AUTO) 0.5 X10'3 (1.1-4.8); LYMPHOCYTES % (AUTO) 1.5 % (21-51); MEAN CORPUSCULAR HEMOGLOBIN 33.6 PG (27.0-31.0); MEAN CORPUSCULAR HGB CONC 33.2 g/dL (33.0-36.5); MEAN CORPUSCULAR VOLUME 101.3 FL (78-98); MEAN PLATELET VOLUME 8.6 FL (7.4-10.4); MONOCYTES # (AUTO) 1.5 X10'3 (0-0.9); NEUTROPHILS # (AUTO) 27.9 X10'3 (1.8-7.7); NEUTROPHILS % (AUTO) 93.1 % (42-75); PLATELET COUNT 292 X10'3 (140-440); RED BLOOD COUNT 4.01 X10'6 (4.20-5.60); RED CELL DISTRIBUTION WIDTH 14.4 % (11.5-14.5)
[2024-01-29 12:33] LABS: ALANINE AMINOTRANSFERASE 11 U/L (12-78); ALBUMIN/GLOBULIN RATIO 0.6 (1.1-1.5); ALKALINE PHOSPHATASE 96 IU/L (46-116); ANION GAP 13 (8-16); ASPARTATE AMINO TRANSFERASE 11 U/L (10-37); BILIRUBIN,TOTAL 0.5 MG/DL (0.1-1.0); BLOOD UREA NITROGEN 27 MG/DL (7-18); BUN/CREATININE RATIO 14.5 (10.0-20.0); CALCIUM 9.4 MG/DL (8.5-10.1); CHLORIDE 98 MMOL/L (99-107); CREATININE 1.86 MG/DL (0.40-0.90); GLUCOSE 132 MG/DL (70-104); POTASSIUM 3.6 MMOL/L (3.5-5.1); SODIUM 135 MMOL/L (135-145); TOTAL CARBON DIOXIDE 23.7 MMOL/L (24-32); TOTAL PROTEIN 8.3 G/DL (6.4-8.2); eCRCL 26 ML/MIN; eGFR 27 ML/MIN
[2024-01-29 12:39] LABS: TOTAL CELLS COUNTED 100
[2024-01-29 12:41] LABS: PLATELET ESTIMATE NORMAL
[2024-01-29 12:43] LABS: ETHANOL < 10 MG/DL (<10)
[2024-01-29 12:44] LABS: STOMATOCYTES FEW
[2024-01-29 12:45] LABS: TOXIC GRANULATION 2+; TOXIC VACUOLATION 1+
[2024-01-29 12:50] LABS: BILIRUBIN,URINE NEGATIVE (Neg); CLARITY,URINE CLOUDY (Clear); COLOR,URINE YELLOW (Yellow); GLUCOSE, URINE NEGATIVE (Neg); KETONES,URINE NEGATIVE (Neg); LEUKOCYTE ESTERASE ,URINE LARGE (Neg); NITRITES, URINE POSITIVE (Neg); OCCULT BLOOD,URINE SMALL (Neg); PROTEIN,URINE TRACE mg/dl (Neg); UROBILINOGEN,URINE 0.2 E.U/dL (0.2-1.0)
[2024-01-29 13:00] LABS: UA COLLECTION TYPE NON-SPECIFIED
[2024-01-29 13:03] LABS: BACTERIA,URINE 4+ /HPF (Neg); MUCUS STRANDS FEW /LPF (Neg); RBC,URINE 20-50 /HPF (0-2); SQUAMOUS EPITHELIAL CELL,UR MODERATE /LPF (FEW); URINE AMPHETAMINE SCREEN NEGATIVE (Neg); URINE BARBITUATE SCREEN NEGATIVE (Neg); URINE BENZODIAZEPINES SCREEN NEGATIVE (Neg); URINE CANNABINOID SCREEN NEGATIVE (Neg); URINE COCAINE SCREEN NEGATIVE (Neg); URINE METHADONE SCREEN NEGATIVE (Neg); URINE OPIATE SCREEN NEGATIVE (Neg); URINE PHENCYCLIDINE SCREEN NEGATIVE (Neg); WBC,URINE 50-100 /HPF (0-4)
[2024-01-29] MEDS: vancomycin/NS 1 GM ADD-VANTAGE 250 ML IV ONE (13:20)
[2024-01-29] MEDS: normal saline 1000ML IV soln IV ONE (14:14)
[2024-01-29] MEDS: piperacillin/tazo 3.375gm/50ml 50 ML IV ONE (14:15)
[2024-01-29] MEDS: morphine 2 MG/ML inj. syringe IV ONE ×2 (14:15→15:50)
[2024-01-29] MEDS: dexamethasone sod phosphate 10mg/ml inj IV STA (15:49)
[2024-01-29 16:39] LABS: ALBUMIN 2.8 G/DL (3.4-5.0); ANION GAP 15 (8-16); BLOOD UREA NITROGEN 26 MG/DL (7-18); BUN/CREATININE RATIO 14.7 (10.0-20.0); CALCIUM 8.7 MG/DL (8.5-10.1); CHLORIDE 103 MMOL/L (99-107); CREATININE 1.77 MG/DL (0.40-0.90); GLUCOSE 110 MG/DL (70-104); POTASSIUM 3.3 MMOL/L (3.5-5.1); SODIUM 139 MMOL/L (135-145); TOTAL CARBON DIOXIDE 21.4 MMOL/L (24-32); eCRCL 27 ML/MIN; eGFR 29 ML/MIN
[2024-01-29] MEDS ORDERED: iohexol 300mg/ml 100ml inj. ONE (17:23)
[2024-01-29] MEDS: potassium Cl 20 mEq SR tablet PO STA (17:54)
[2024-01-29 23:52] LABS: BASOPHILS % (AUTO) 0.2 % (0-1); EOSINOPHILS % (AUTO) 0 % (0-6); HEMATOCRIT 33.4 % (35.0-45.0); LYMPHOCYTES # (AUTO) 0.2 X10'3 (1.1-4.8); LYMPHOCYTES % (AUTO) 0.7 % (21-51); MEAN CORPUSCULAR HEMOGLOBIN 33.6 PG (27.0-31.0); MEAN CORPUSCULAR HGB CONC 32.9 g/dL (33.0-36.5); MEAN CORPUSCULAR VOLUME 102.4 FL (78-98); MEAN PLATELET VOLUME 8.1 FL (7.4-10.4); MONOCYTES # (AUTO) 0.4 X10'3 (0-0.9); MONOCYTES % (AUTO) 1.5 % (2-12); NEUTROPHILS # (AUTO) 25.6 X10'3 (1.8-7.7); NEUTROPHILS % (AUTO) 97.6 % (42-75); PLATELET COUNT 226 X10'3 (140-440); RED BLOOD COUNT 3.26 X10'6 (4.20-5.60); RED CELL DISTRIBUTION WIDTH 14.9 % (11.5-14.5)
[2024-01-29 23:59] LABS: WHITE BLOOD COUNT 26.3 X10'3 (4.5-11.0)
[2024-01-30 00:23] LABS: PLATELET ESTIMATE NORMAL; TOTAL CELLS COUNTED 100
[2024-01-30] MEDS ORDERED: piperacillin/tazo 3.375gm/50ml 50 ML IV SCH (02:00)
[2024-01-30] MEDS: morphine 2 MG/ML inj. syringe IV PRN (02:07)
[2024-01-30] MEDS: piperacillin/tazo 3.375gm/50ml 50 ML IV SCH ×2 (02:52→17:15)
[2024-01-30] MEDS: HYDROcodone/acetaminophen 10/325mg tab PO ONE (07:49)
[2024-01-30] MEDS ORDERED: piperacillin/tazo 4.5gm/100ml 100 ML IV SCH (08:00)
[2024-01-30] MEDS ORDERED: vancomycin/NS 1 GM ADD-VANTAGE 250 ML IV SCH (08:00)
[2024-01-30] MEDS: VANCOMYCIN 1,500MG inj. 1,500 MG in normal saline 500ml IV soln 300 ML IV ONE (08:22)
[2024-01-30 09:16] LABS: ALBUMIN 2.4 G/DL (3.4-5.0); ANION GAP 7 (8-16); BLOOD UREA NITROGEN 27 MG/DL (7-18); BUN/CREATININE RATIO 16.2 (10.0-20.0); CALCIUM 8.9 MG/DL (8.5-10.1); CHLORIDE 107 MMOL/L (99-107); CREATININE 1.67 MG/DL (0.40-0.90); GLUCOSE 144 MG/DL (70-104); POTASSIUM 3.7 MMOL/L (3.5-5.1); SODIUM 136 MMOL/L (135-145); TOTAL CARBON DIOXIDE 22.4 MMOL/L (24-32); eCRCL 29 ML/MIN; eGFR 31 ML/MIN
[2024-01-30 09:20] LABS: BASOPHILS % (AUTO) 0.1 % (0-1); EOSINOPHILS % (AUTO) 0 % (0-6); HEMATOCRIT 33.6 % (35.0-45.0); LYMPHOCYTES # (AUTO) 0.3 X10'3 (1.1-4.8); LYMPHOCYTES % (AUTO) 1.3 % (21-51); MEAN CORPUSCULAR HEMOGLOBIN 33.7 PG (27.0-31.0); MEAN CORPUSCULAR HGB CONC 32.6 g/dL (33.0-36.5); MEAN CORPUSCULAR VOLUME 103.3 FL (78-98); MEAN PLATELET VOLUME 8.5 FL (7.4-10.4); MONOCYTES % (AUTO) 3.9 % (2-12); NEUTROPHILS % (AUTO) 94.7 % (42-75); PLATELET COUNT 238 X10'3 (140-440); RED BLOOD COUNT 3.26 X10'6 (4.20-5.60); RED CELL DISTRIBUTION WIDTH 15.1 % (11.5-14.5)
[2024-01-30] MEDS ORDERED: potassium Cl 40MEQ/1/2NS 520ml 520 ML IV PRN (09:25)
[2024-01-30] MEDS ORDERED: ondansetron/PF 4mg/2ml inj IV PRN (09:25)
[2024-01-30] MEDS ORDERED: magnesium 2GM in 50ml NS 50 ML IV PRN (09:25)
[2024-01-30] MEDS ORDERED: potassium Cl 20 mEq SR tablet PO PRN ×2 (09:25)
[2024-01-30] MEDS ORDERED: acetaminophen 325mg tablet PO PRN ×2 (09:25)
[2024-01-30] MEDS ORDERED: magnesium 4gm in 100ml NS 100 ML IV PRN (09:25)
[2024-01-30] MEDS ORDERED: HYDROmorphone inj. 0.5 MG/0.5 ML DISP.SYRIN IV PRN (09:25)
[2024-01-30] MEDS ORDERED: magnesium Cl slow-release 64mg tablet PO PRN (09:25)
[2024-01-30] MEDS ORDERED: acetaminophen 650mg rectal suppository RC PRN (09:25)
[2024-01-30] MEDS ORDERED: mag hydrox/Alum hydrox/simeth 30ml oral suspension PO PRN (09:25)
[2024-01-30] MEDS ORDERED: ondansetron 4mg rapidly disintigrating tab PO PRN (09:25)
[2024-01-30] MEDS ORDERED: magnesium hydroxide 30ml (MOM) UD suspension PO PRN (09:25)
[2024-01-30] MEDS ORDERED: ketorolac trometh. 30mg/ml inj. IV PRN (09:25)
[2024-01-30] MEDS ORDERED: bisacodyl 10mg suppository rectal RC PRN (09:25)
[2024-01-30] MEDS ORDERED: HYDROmorphone/PF 0.2 MG/ML SYRINGE IV PRN (09:25)
[2024-01-30 09:31] LABS: WHITE BLOOD COUNT 25.4 X10'3 (4.5-11.0)
[2024-01-30] MEDS ORDERED: ketorolac tromethamine 15mg/ml inj. IV PRN (09:40)
[2024-01-30 10:01] LABS: TOTAL CELLS COUNTED 100
[2024-01-30 10:02] LABS: PLATELET ESTIMATE NORMAL
[2024-01-30 11:00] VITALS: RESP 16
[2024-01-30] MEDS: HYDROcodone/acetaminophen 5mg/325mg tablet PO PRN (11:51)
[2024-01-30] MEDS: predniSONE 20 mg tablet PO SCH (11:51)
[2024-01-30] MEDS: normal saline 1000ml 1,000 ML IV SCH (11:52)
[2024-01-30] MEDS: piperacillin/tazo 3.375gm/50ml 50 ML IV ONE (12:32)
[2024-01-30] MEDS: polyvinyl alcohol ophthalmic drops 15ml bottle EACHEYE PRN (15:44)
[2024-01-30] MEDS: valacyclovir 500mg tablet PO SCH (15:51)
[2024-01-30] MEDS: HYDROcodone/acetaminophen 10/325mg tab PO PRN (15:52)
[2024-01-30 18:00] VITALS: BP 135/84; PULSE 73; RESP 16; TEMP 98.6; O2SAT 94
[2024-01-30 20:00] VITALS: RESP 15; O2SAT 95
[2024-01-30] MEDS: K and/or MAG REPLACEMENT MC SCH (20:00)
[2024-01-30] MEDS: heparin, porcine 5000 units/ml vial SQ SCH (20:25)
[2024-01-30] MEDS: docusate sod 100mg capsule PO SCH (20:25)
[2024-01-30] MEDS ORDERED: temazepam 15mg capsule PO PRN (21:00)
[2024-01-30 22:00] VITALS: BP 149/79; PULSE 60; RESP 18; TEMP 98.2; O2SAT 92
[2024-01-31 06:00] VITALS: BP 167/93; PULSE 54; RESP 18; TEMP 97.7; O2SAT 96
[2024-01-31 07:20] LABS: BASOPHILS % (AUTO) 0 % (0-1); EOSINOPHILS % (AUTO) 0 % (0-6); HEMATOCRIT 32.5 % (35.0-45.0); HEMOGLOBIN 10.4 g/dl (12.0-16.0); LYMPHOCYTES # (AUTO) 0.4 X10'3 (1.1-4.8); LYMPHOCYTES % (AUTO) 2.1 % (21-51); MEAN CORPUSCULAR HEMOGLOBIN 33.1 PG (27.0-31.0); MEAN CORPUSCULAR VOLUME 103.6 FL (78-98); MEAN PLATELET VOLUME 8.1 FL (7.4-10.4); MONOCYTES # (AUTO) 0.7 X10'3 (0-0.9); NEUTROPHILS # (AUTO) 17.2 X10'3 (1.8-7.7); NEUTROPHILS % (AUTO) 93.9 % (42-75); PLATELET COUNT 269 X10'3 (140-440); RED BLOOD COUNT 3.14 X10'6 (4.20-5.60); RED CELL DISTRIBUTION WIDTH 15.2 % (11.5-14.5); WHITE BLOOD COUNT 18.3 X10'3 (4.5-11.0)
[2024-01-31 07:30] LABS: ALANINE AMINOTRANSFERASE 12 U/L (12-78); ALBUMIN 2.2 G/DL (3.4-5.0); ALBUMIN/GLOBULIN RATIO 0.5 (1.1-1.5); ALKALINE PHOSPHATASE 74 IU/L (46-116); ANION GAP 12 (8-16); ASPARTATE AMINO TRANSFERASE 13 U/L (10-37); BILIRUBIN,TOTAL 0.4 MG/DL (0.1-1.0); BLOOD UREA NITROGEN 27 MG/DL (7-18); BUN/CREATININE RATIO 16.2 (10.0-20.0); CALCIUM 8.8 MG/DL (8.5-10.1); CHLORIDE 108 MMOL/L (99-107); CREATININE 1.67 MG/DL (0.40-0.90); GLUCOSE 125 MG/DL (70-104); MAGNESIUM 1.9 MG/DL (1.5-2.4); SODIUM 140 MMOL/L (135-145); TOTAL CARBON DIOXIDE 20.1 MMOL/L (24-32); TOTAL PROTEIN 6.7 G/DL (6.4-8.2); eCRCL 29 ML/MIN; eGFR 31 ML/MIN
[2024-01-31 08:45] VITALS: RESP 18; O2SAT 95
[2024-01-31 10:00] VITALS: BP 139/78; PULSE 67; RESP 18; TEMP 98.1; O2SAT 97
[2024-01-31] MEDS: vancomycin inj 500 MG in normal saline 100ml IV soln 100 ML IV SCH (10:52)
[2024-01-31] MEDS: pantoprazole 40mg Tablet.DR PO SCH (10:57)
[2024-01-31] MEDS ORDERED: vancomycin inj 500 MG in normal saline 100ml IV soln 100 ML IV SCH (13:00)
[2024-01-31 18:00] VITALS: BP_SYST 150; BP_SYST 167; BP_DIAS 93; BP_DIAS 94; PULSE 53; PULSE 75; RESP 17; RESP 18; TEMP 98.1; TEMP 98.5; O2SAT 96; O2SAT 97
[2024-01-31 20:00] VITALS: RESP 17; O2SAT 97
[2024-01-31 22:00] VITALS: BP 167/93; PULSE 53; RESP 17; TEMP 98.5; O2SAT 96
[2024-02-01 06:00] VITALS: BP 143/92; PULSE 62; RESP 14; TEMP 98.4; O2SAT 95
[2024-02-01 06:25] LABS: BASOPHILS % (AUTO) 0.1 % (0-1); EOSINOPHILS % (AUTO) 0 % (0-6); HEMOGLOBIN 9.7 g/dl (12.0-16.0); LYMPHOCYTES # (AUTO) 0.6 X10'3 (1.1-4.8); LYMPHOCYTES % (AUTO) 5.1 % (21-51); MEAN CORPUSCULAR HEMOGLOBIN 33.7 PG (27.0-31.0); MEAN CORPUSCULAR HGB CONC 32.5 g/dL (33.0-36.5); MEAN CORPUSCULAR VOLUME 103.6 FL (78-98); MEAN PLATELET VOLUME 7.6 FL (7.4-10.4); MONOCYTES # (AUTO) 0.9 X10'3 (0-0.9); MONOCYTES % (AUTO) 7.2 % (2-12); NEUTROPHILS % (AUTO) 87.6 % (42-75); PLATELET COUNT 288 X10'3 (140-440); RED BLOOD COUNT 2.89 X10'6 (4.20-5.60); RED CELL DISTRIBUTION WIDTH 14.7 % (11.5-14.5); WHITE BLOOD COUNT 12.6 X10'3 (4.5-11.0)
[2024-02-01 07:12] VITALS: RESP 14; O2SAT 95
[2024-02-01 09:19] LABS: ALANINE AMINOTRANSFERASE 16 U/L (12-78); ALBUMIN 2.4 G/DL (3.4-5.0); ALBUMIN/GLOBULIN RATIO 0.5 (1.1-1.5); ALKALINE PHOSPHATASE 63 IU/L (46-116); ANION GAP 9 (8-16); ASPARTATE AMINO TRANSFERASE 11 U/L (10-37); BLOOD UREA NITROGEN 29 MG/DL (7-18); BUN/CREATININE RATIO 16.3 (10.0-20.0); CALCIUM 9.2 MG/DL (8.5-10.1); CHLORIDE 111 MMOL/L (99-107); CREATININE 1.78 MG/DL (0.40-0.90); GLUCOSE 103 MG/DL (70-104); MAGNESIUM 2.2 MG/DL (1.5-2.4); POTASSIUM 3.9 MMOL/L (3.5-5.1); SODIUM 143 MMOL/L (135-145); TOTAL CARBON DIOXIDE 22.9 MMOL/L (24-32); TOTAL PROTEIN 7.2 G/DL (6.4-8.2); eCRCL 27 ML/MIN; eGFR 29 ML/MIN
[2024-02-01 09:54] LABS: BILIRUBIN,TOTAL 0.3 MG/DL (0.1-1.0)
[2024-02-01 10:00] VITALS: BP 153/104; PULSE 60; RESP 16; TEMP 97.9; O2SAT 97
[2024-02-01] MEDS: valacyclovir 500mg tablet PO SCH (16:00)
[2024-02-01 20:00] VITALS: RESP 16; O2SAT 97
[2024-02-01 22:00] VITALS: BP 155/86; PULSE 62; RESP 16; TEMP 97.7; O2SAT 97
[2024-02-02] VITALS (10 sets, daily range): BP systolic 150–183; BP diastolic 84–98; PULSE 55–87; RESP 16–18; TEMP 97.3–98.4; O2SAT 94–99
[2024-02-02] MEDS: VANCOMYCIN LEVEL IV ONE (07:30)
[2024-02-02] MEDS: predniSONE 20 mg tablet PO SCH (07:46)
[2024-02-02 09:22] LABS: BASOPHILS % (AUTO) 0.1 % (0-1); EOSINOPHILS % (AUTO) 0.1 % (0-6); HEMATOCRIT 34.1 % (35.0-45.0); HEMOGLOBIN 11.2 g/dl (12.0-16.0); LYMPHOCYTES # (AUTO) 0.7 X10'3 (1.1-4.8); LYMPHOCYTES % (AUTO) 6.1 % (21-51); MEAN CORPUSCULAR HEMOGLOBIN 33.7 PG (27.0-31.0); MEAN CORPUSCULAR HGB CONC 32.9 g/dL (33.0-36.5); MEAN CORPUSCULAR VOLUME 102.3 FL (78-98); MEAN PLATELET VOLUME 7.5 FL (7.4-10.4); MONOCYTES # (AUTO) 1.1 X10'3 (0-0.9); MONOCYTES % (AUTO) 9.3 % (2-12); NEUTROPHILS # (AUTO) 10.1 X10'3 (1.8-7.7); NEUTROPHILS % (AUTO) 84.4 % (42-75); PLATELET COUNT 335 X10'3 (140-440); RED BLOOD COUNT 3.33 X10'6 (4.20-5.60); RED CELL DISTRIBUTION WIDTH 14.9 % (11.5-14.5); WHITE BLOOD COUNT 11.9 X10'3 (4.5-11.0)
[2024-02-02 09:50] LABS: ALANINE AMINOTRANSFERASE 17 U/L (12-78); ALBUMIN 2.6 G/DL (3.4-5.0); ALBUMIN/GLOBULIN RATIO 0.6 (1.1-1.5); ALKALINE PHOSPHATASE 57 IU/L (46-116); ANION GAP 8 (8-16); ASPARTATE AMINO TRANSFERASE 7 U/L (10-37); BILIRUBIN,TOTAL 0.2 MG/DL (0.1-1.0); BLOOD UREA NITROGEN 30 MG/DL (7-18); BUN/CREATININE RATIO 16.9 (10.0-20.0); CALCIUM 9.1 MG/DL (8.5-10.1); CHLORIDE 110 MMOL/L (99-107); CREATININE 1.77 MG/DL (0.40-0.90); GLUCOSE 86 MG/DL (70-104); POTASSIUM 3.6 MMOL/L (3.5-5.1); SODIUM 143 MMOL/L (135-145); TOTAL PROTEIN 7.2 G/DL (6.4-8.2); VANCOMYCIN,TROUGH 18.6 ug/mL (10.0-20.0); eCRCL 27 ML/MIN; eGFR 29 ML/MIN
[2024-02-02] MEDS: hydrALAZINE 25 MG tablet PO SCH (09:50)
[2024-02-02] MEDS ORDERED: HYDROmorphone/PF 0.2 MG/ML SYRINGE IV PRN (18:40)
[2024-02-02] MEDS: HYDROmorphone inj. 0.5 MG/0.5 ML DISP.SYRIN IV PRN (20:28)
[2024-02-02] MEDS: amLODIPine 5mg tablet PO ONE (21:32)
[2024-02-03] VITALS (7 sets, daily range): BP systolic 147–191; BP diastolic 79–109; PULSE 50–95; RESP 14–18; TEMP 97.9–98.8; O2SAT 94–97
[2024-02-03] MEDS: hydrALAZINE 20mg/ml inj. IV ONE (04:27)
[2024-02-03 06:31] LABS: BASOPHILS % (AUTO) 0.1 % (0-1); EOSINOPHILS % (AUTO) 0.4 % (0-6); HEMATOCRIT 34.7 % (35.0-45.0); HEMOGLOBIN 11.4 g/dl (12.0-16.0); LYMPHOCYTES # (AUTO) 1.2 X10'3 (1.1-4.8); LYMPHOCYTES % (AUTO) 9.9 % (21-51); MEAN CORPUSCULAR HEMOGLOBIN 33.5 PG (27.0-31.0); MEAN CORPUSCULAR HGB CONC 32.9 g/dL (33.0-36.5); MEAN CORPUSCULAR VOLUME 101.9 FL (78-98); MEAN PLATELET VOLUME 7.6 FL (7.4-10.4); MONOCYTES # (AUTO) 1.5 X10'3 (0-0.9); MONOCYTES % (AUTO) 12.7 % (2-12); NEUTROPHILS # (AUTO) 9.2 X10'3 (1.8-7.7); NEUTROPHILS % (AUTO) 76.9 % (42-75); PLATELET COUNT 375 X10'3 (140-440); RED BLOOD COUNT 3.41 X10'6 (4.20-5.60)
[2024-02-03 06:47] LABS: ALANINE AMINOTRANSFERASE 15 U/L (12-78); ALBUMIN 2.3 G/DL (3.4-5.0); ALBUMIN/GLOBULIN RATIO 0.5 (1.1-1.5); ALKALINE PHOSPHATASE 59 IU/L (46-116); ANION GAP 2 (8-16); ASPARTATE AMINO TRANSFERASE 11 U/L (10-37); BILIRUBIN,TOTAL 0.2 MG/DL (0.1-1.0); BLOOD UREA NITROGEN 30 MG/DL (7-18); BUN/CREATININE RATIO 19.6 (10.0-20.0); CALCIUM 8.7 MG/DL (8.5-10.1); CHLORIDE 110 MMOL/L (99-107); CREATININE 1.53 MG/DL (0.40-0.90); GLUCOSE 78 MG/DL (70-104); POTASSIUM 3.8 MMOL/L (3.5-5.1); SODIUM 139 MMOL/L (135-145); TOTAL CARBON DIOXIDE 26.7 MMOL/L (24-32); TOTAL PROTEIN 6.7 G/DL (6.4-8.2); eCRCL 32 ML/MIN; eGFR 34 ML/MIN
[2024-02-04 06:00] VITALS: BP 168/85; PULSE 82; RESP 18; TEMP 98.7; O2SAT 94
[2024-02-04 06:12] LABS: BASOPHILS % (AUTO) 0.1 % (0-1); EOSINOPHILS # (AUTO) 0.1 X10'3 (0-0.9); EOSINOPHILS % (AUTO) 0.5 % (0-6); LYMPHOCYTES # (AUTO) 1.7 X10'3 (1.1-4.8); LYMPHOCYTES % (AUTO) 14.8 % (21-51); MEAN CORPUSCULAR HEMOGLOBIN 34.1 PG (27.0-31.0); MEAN CORPUSCULAR HGB CONC 33.3 g/dL (33.0-36.5); MEAN CORPUSCULAR VOLUME 102.3 FL (78-98); MEAN PLATELET VOLUME 7.6 FL (7.4-10.4); MONOCYTES # (AUTO) 1.2 X10'3 (0-0.9); MONOCYTES % (AUTO) 10.4 % (2-12); NEUTROPHILS # (AUTO) 8.3 X10'3 (1.8-7.7); NEUTROPHILS % (AUTO) 74.2 % (42-75); PLATELET COUNT 447 X10'3 (140-440); RED BLOOD COUNT 3.22 X10'6 (4.20-5.60); RED CELL DISTRIBUTION WIDTH 15.1 % (11.5-14.5); WHITE BLOOD COUNT 11.2 X10'3 (4.5-11.0)
[2024-02-04 06:23] LABS: ALANINE AMINOTRANSFERASE 17 U/L (12-78); ALBUMIN 2.4 G/DL (3.4-5.0); ALBUMIN/GLOBULIN RATIO 0.6 (1.1-1.5); ALKALINE PHOSPHATASE 60 IU/L (46-116); ANION GAP 5 (8-16); ASPARTATE AMINO TRANSFERASE 14 U/L (10-37); BILIRUBIN,TOTAL 0.3 MG/DL (0.1-1.0); BLOOD UREA NITROGEN 27 MG/DL (7-18); BUN/CREATININE RATIO 17.1 (10.0-20.0); CALCIUM 8.8 MG/DL (8.5-10.1); CHLORIDE 108 MMOL/L (99-107); CREATININE 1.58 MG/DL (0.40-0.90); POTASSIUM 4.3 MMOL/L (3.5-5.1); SODIUM 140 MMOL/L (135-145); TOTAL CARBON DIOXIDE 27.2 MMOL/L (24-32); TOTAL PROTEIN 6.7 G/DL (6.4-8.2); eCRCL 31 ML/MIN; eGFR 33 ML/MIN
[2024-02-04 06:32] LABS: GLUCOSE 84 MG/DL (70-104)
[2024-02-04 06:55] VITALS: RESP 16
[2024-02-04] MEDS: predniSONE 20 mg tablet PO SCH (08:17)
[2024-02-04 11:00] VITALS: BP 140/90; PULSE 85; RESP 18; TEMP 97.7; O2SAT 95
[2024-02-04 12:35] VITALS: RESP 18; O2SAT 95
[2024-02-04 16:02] VITALS: RESP 16
[2024-02-04 16:04] VITALS: BP_SYST 142; PULSE 90
== END 2024-02-04 16:20 | DRG 872 ==
LOC: ER 11:09 → ED HOLD 01-30 09:29 → ORTHO 4S 01-30 10:55
PROVIDERS: ADMIT Family Medicine; ATTEND Family Medicine
PROC: BN251ZZ Computerized Tomography (CT Scan) of Facial Bones using Low Osmolar Contrast (ICD-10-PCS; principal; 2024-01-29)
DX: A41.02 Sepsis due to Methicillin resistant Staphylococcus aureus (principal); N39.0 Urinary tract infection, site not specified; E44.0 Moderate protein-calorie malnutrition; R64 Cachexia; G51.0 Bell's palsy; N18.30 Chronic kidney disease, stage 3 unspecified; K11.20 Sialoadenitis, unspecified; F17.210 Nicotine dependence, cigarettes, uncomplicated; F31.9 Bipolar disorder, unspecified; I12.9 Hypertensive chronic kidney disease with stage 1 through stage 4 chronic kidney disease, or unspecified chronic kidney disease; Z66 Do not resuscitate; Z79.899 Other long term (current) drug therapy; Z68.20 Body mass index [BMI] 20.0-20.9, adult
CPT/HCPCS: 36410; 36415; 70450; 70486; 70487; 71045; 76942; 80048; 80053; 80202; 80305; 80320; 81001; 83605; 83735; 84145; 84484; 85007; 85025; 87040; 87077; 87081; 87088; 87186; 93005; 97161; 97530; 99285; A6258; C1751; G0378; J0360; J1100; J1170; J1644; J2270; J2543; J3370; J3490; J7030; J7040; J7512; Q9967

== ENCOUNTER 2024-02-27 13:56 | Inpatient (IN) | payer BC, MEDICARE ==
[~2024-02-27] VITALS: Ht 165.1 cm; Wt 55.5 kg
[2024-02-27 14:49] LABS: BASOPHILS % (AUTO) 0.1 % (0-1); EOSINOPHILS # (AUTO) 0.1 X10'3 (0-0.9); EOSINOPHILS % (AUTO) 0.4 % (0-6); HEMATOCRIT 39.2 % (35.0-45.0); HEMOGLOBIN 12.6 g/dl (12.0-16.0); LYMPHOCYTES # (AUTO) 0.7 X10'3 (1.1-4.8); LYMPHOCYTES % (AUTO) 2.6 % (21-51); MEAN CORPUSCULAR HEMOGLOBIN 33.2 PG (27.0-31.0); MEAN CORPUSCULAR HGB CONC 32.1 g/dL (33.0-36.5); MEAN CORPUSCULAR VOLUME 103.2 FL (78-98); MEAN PLATELET VOLUME 8.5 FL (7.4-10.4); MONOCYTES # (AUTO) 2.4 X10'3 (0-0.9); MONOCYTES % (AUTO) 9.6 % (2-12); NEUTROPHILS # (AUTO) 22.3 X10'3 (1.8-7.7); NEUTROPHILS % (AUTO) 87.3 % (42-75); PLATELET COUNT 429 X10'3 (140-440); RED CELL DISTRIBUTION WIDTH 16.3 % (11.5-14.5)
[2024-02-27 14:52] LABS: WHITE BLOOD COUNT 25.6 X10'3 (4.5-11.0)
[2024-02-27 14:55] LABS: ALANINE AMINOTRANSFERASE 15 U/L (12-78); ALBUMIN 2.3 G/DL (3.4-5.0); ALBUMIN/GLOBULIN RATIO 0.4 (1.1-1.5); ALKALINE PHOSPHATASE 93 IU/L (46-116); ANION GAP 15 (8-16); ASPARTATE AMINO TRANSFERASE 12 U/L (10-37); BILIRUBIN,TOTAL 0.3 MG/DL (0.1-1.0); BLOOD UREA NITROGEN 53 MG/DL (7-18); BUN/CREATININE RATIO 14.5 (10.0-20.0); CALCIUM 9.5 MG/DL (8.5-10.1); CHLORIDE 94 MMOL/L (99-107); CREATININE 3.66 MG/DL (0.40-0.90); GLUCOSE 131 MG/DL (70-104); LIPASE 10 U/L (16-77); SODIUM 128 MMOL/L (135-145); TOTAL CARBON DIOXIDE 19.4 MMOL/L (24-32); TOTAL PROTEIN 7.5 G/DL (6.4-8.2); eCRCL 13 ML/MIN; eGFR 12 ML/MIN
[2024-02-27 15:20] LABS: TOTAL CELLS COUNTED 100
[2024-02-27 15:21] LABS: ANISOCYTOSIS 1+; PLATELET ESTIMATE NORMAL
[2024-02-27] MEDS ORDERED: acetaminophen 1,000mg/100ml IV 100 ML IV SCH ×2 (15:55→20:00)
[2024-02-27] MEDS: ondansetron/PF 4mg/2ml inj IV ONE (16:07)
[2024-02-27] MEDS: normal saline 1000ml 1,000 ML IV ONE ×2 (16:08→17:45)
[2024-02-27] MEDS: CefTRIAXone/D5W-Rocephin 1gm 50 ML IV ONE (16:08)
[2024-02-27] MEDS: acetaminophen 1,000mg/100ml IV 100 ML IV ONE (16:08)
[2024-02-27] MEDS ORDERED: magnesium 4gm in 100ml NS 100 ML IV PRN (17:55)
[2024-02-27] MEDS ORDERED: magnesium Cl slow-release 64mg tablet PO PRN (17:55)
[2024-02-27] MEDS ORDERED: potassium Cl 40MEQ/1/2NS 520ml 520 ML IV PRN (17:55)
[2024-02-27] MEDS ORDERED: magnesium 2GM in 50ml NS 50 ML IV PRN (17:55)
[2024-02-27] MEDS ORDERED: ondansetron/PF 4mg/2ml inj IV PRN (17:55)
[2024-02-27] MEDS ORDERED: potassium Cl 20 mEq SR tablet PO PRN ×2 (17:55)
[2024-02-27] MEDS ORDERED: BUSP10TA3 PO (17:57)
[2024-02-27] MEDS ORDERED: LORazepam 2 mg/ml vial IV PRN (18:30)
[2024-02-27] MEDS: metroNIDAZOLE-Flagyl 500mg/NS 100 ML IV SCH (18:58)
[2024-02-27] MEDS: normal saline 1000ml 1,000 ML IV SCH (18:58)
[2024-02-27] MEDS: HYDROcodone/acetaminophen 5mg/325mg tablet PO PRN (18:59)
[2024-02-27] MEDS: vancomycin 250MG/10ML UD oral solution 10ML BOTTLE PO SCH (19:00)
[2024-02-27 19:50] LABS: ALANINE AMINOTRANSFERASE 15 U/L (12-78); ALBUMIN 2.2 G/DL (3.4-5.0); ALBUMIN/GLOBULIN RATIO 0.4 (1.1-1.5); ALKALINE PHOSPHATASE 96 IU/L (46-116); ASPARTATE AMINO TRANSFERASE 17 U/L (10-37); BILIRUBIN,DIRECT 0.1 MG/DL (0-0.3); BILIRUBIN,TOTAL 0.2 MG/DL (0.1-1.0); TOTAL PROTEIN 7.2 G/DL (6.4-8.2)
[2024-02-27 20:33] VITALS: BP 111/70; PULSE 98; RESP 20; TEMP 97.8; O2SAT 96
[2024-02-27 21:00] VITALS: RESP 20; O2SAT 96
[2024-02-27 22:00] VITALS: BP 118/75; PULSE 108; RESP 20; TEMP 98.9; O2SAT 98
[2024-02-27] MEDS: morphine 2 MG/ML inj. syringe IV PRN (22:11)
[2024-02-27] MEDS: heparin, porcine 5000 units/ml vial SQ SCH (22:11)
[2024-02-28] VITALS (10 sets, daily range): BP systolic 98–129; BP diastolic 71–79; PULSE 101–112; RESP 12–20; TEMP 97.3–98.4; O2SAT 95–98
[2024-02-28] MEDS: acetaminophen 325mg tablet PO SCH (00:05)
[2024-02-28] MEDS: LORazepam 1 MG tablet PO PRN (02:25)
[2024-02-28] MEDS: vancomycin 250MG/10ML UD oral solution 10ML BOTTLE PO SCH (04:47)
[2024-02-28 07:07] LABS: C DIFF ANTIGEN POSITIVE (NEGATIVE); C DIFF SPECIMEN=DIARRHEA? ACCEPTABLE; C DIFFICILE TOXINS A&B POSITIVE (Neg)
[2024-02-28] MEDS: CefTRIAXone 2gm/D5W 50ml BAG 50 ML IV SCH (07:28)
[2024-02-28] MEDS: multivitamins, therapeutics tablet PO SCH (07:29)
[2024-02-28] MEDS: nicotine 14mg patch - 24hr TD SCH (07:30)
[2024-02-28 07:55] LABS: BASOPHILS % (AUTO) 0.2 % (0-1); EOSINOPHILS # (AUTO) 0.1 X10'3 (0-0.9); EOSINOPHILS % (AUTO) 0.4 % (0-6); HEMATOCRIT 34.9 % (35.0-45.0); HEMOGLOBIN 11.3 g/dl (12.0-16.0); LYMPHOCYTES # (AUTO) 0.3 X10'3 (1.1-4.8); LYMPHOCYTES % (AUTO) 1.7 % (21-51); MEAN CORPUSCULAR HGB CONC 32.5 g/dL (33.0-36.5); MEAN CORPUSCULAR VOLUME 101.7 FL (78-98); MONOCYTES # (AUTO) 1.8 X10'3 (0-0.9); MONOCYTES % (AUTO) 8.9 % (2-12); NEUTROPHILS # (AUTO) 18.3 X10'3 (1.8-7.7); NEUTROPHILS % (AUTO) 88.8 % (42-75); PLATELET COUNT 385 X10'3 (140-440); RED BLOOD COUNT 3.43 X10'6 (4.20-5.60); RED CELL DISTRIBUTION WIDTH 15.9 % (11.5-14.5); WHITE BLOOD COUNT 20.6 X10'3 (4.5-11.0)
[2024-02-28 08:16] LABS: ALANINE AMINOTRANSFERASE 10 U/L (12-78); ALBUMIN 1.7 G/DL (3.4-5.0); ALBUMIN/GLOBULIN RATIO 0.4 (1.1-1.5); ALKALINE PHOSPHATASE 71 IU/L (46-116); ANION GAP 13 (8-16); ASPARTATE AMINO TRANSFERASE 11 U/L (10-37); BILIRUBIN,TOTAL 0.2 MG/DL (0.1-1.0); BLOOD UREA NITROGEN 56 MG/DL (7-18); BUN/CREATININE RATIO 15.1 (10.0-20.0); CALCIUM 7.7 MG/DL (8.5-10.1); CHLORIDE 100 MMOL/L (99-107); CREATININE 3.71 MG/DL (0.40-0.90); GLUCOSE 96 MG/DL (70-104); LIPASE 8 U/L (16-77); PHOSPHORUS 4.8 MG/DL (2.3-4.5); POTASSIUM 5.2 MMOL/L (3.5-5.1); SODIUM 130 MMOL/L (135-145); TOTAL CARBON DIOXIDE 16.8 MMOL/L (24-32); TOTAL PROTEIN 5.8 G/DL (6.4-8.2); eCRCL 13 ML/MIN; eGFR 12 ML/MIN
[2024-02-28 10:40] LABS: ANISOCYTOSIS 1+; PLATELET ESTIMATE NORMAL; TOTAL CELLS COUNTED 100; TOXIC VACUOLATION 2+
[2024-02-28 10:41] LABS: BURR CELLS 2+
[2024-02-29] VITALS (7 sets, daily range): BP systolic 106–128; BP diastolic 70–80; PULSE 90–98; RESP 16–19; TEMP 98–98.6; O2SAT 95–97
[2024-02-29] MEDS: mag hydrox/Alum hydrox/simeth 30ml oral suspension PO ONE (03:43)
[2024-02-29] MEDS: sucralfate 1 gm tablet PO ONE (03:43)
[2024-02-29] MEDS: LIDOcaine 2% Viscous 15ml cup MM ONE (03:43)
[2024-02-29 07:41] LABS: BASOPHILS % (AUTO) 0.2 % (0-1); EOSINOPHILS # (AUTO) 0.1 X10'3 (0-0.9); EOSINOPHILS % (AUTO) 0.6 % (0-6); HEMATOCRIT 33.7 % (35.0-45.0); HEMOGLOBIN 10.8 g/dl (12.0-16.0); LYMPHOCYTES # (AUTO) 0.5 X10'3 (1.1-4.8); LYMPHOCYTES % (AUTO) 2.7 % (21-51); MEAN CORPUSCULAR HEMOGLOBIN 33.6 PG (27.0-31.0); MONOCYTES # (AUTO) 2.1 X10'3 (0-0.9); MONOCYTES % (AUTO) 10.7 % (2-12); NEUTROPHILS # (AUTO) 16.7 X10'3 (1.8-7.7); NEUTROPHILS % (AUTO) 85.8 % (42-75); PLATELET COUNT 358 X10'3 (140-440); RED BLOOD COUNT 3.21 X10'6 (4.20-5.60); RED CELL DISTRIBUTION WIDTH 16.8 % (11.5-14.5); WHITE BLOOD COUNT 19.4 X10'3 (4.5-11.0)
[2024-02-29 08:17] LABS: ANISOCYTOSIS 1+; BURR CELLS 2+; ELLIPTOCYTES FEW; NUCLEATED RED BLOOD CELLS 1 /100WBC (0-0); PLATELET ESTIMATE NORMAL; TOTAL CELLS COUNTED 100; TOXIC GRANULATION 1+; TOXIC VACUOLATION 2+
[2024-02-29 10:54] LABS: ALANINE AMINOTRANSFERASE 10 U/L (12-78); ALBUMIN 1.5 G/DL (3.4-5.0); ALBUMIN/GLOBULIN RATIO 0.4 (1.1-1.5); ALKALINE PHOSPHATASE 96 IU/L (46-116); ANION GAP 15 (8-16); ASPARTATE AMINO TRANSFERASE 11 U/L (10-37); BILIRUBIN,TOTAL 0.2 MG/DL (0.1-1.0); BLOOD UREA NITROGEN 61 MG/DL (7-18); BUN/CREATININE RATIO 14.7 (10.0-20.0); CALCIUM 7.5 MG/DL (8.5-10.1); CHLORIDE 101 MMOL/L (99-107); CREATININE 4.15 MG/DL (0.40-0.90); GLUCOSE 105 MG/DL (70-104); LIPASE 8 U/L (16-77); MAGNESIUM 2.9 MG/DL (1.5-2.4); PHOSPHORUS 4.5 MG/DL (2.3-4.5); POTASSIUM 4.7 MMOL/L (3.5-5.1); SODIUM 131 MMOL/L (135-145); TOTAL PROTEIN 5.4 G/DL (6.4-8.2); eCRCL 12 ML/MIN; eGFR 11 ML/MIN
[2024-02-29 11:02] LABS: TOTAL CARBON DIOXIDE 14.8 MMOL/L (24-32)
[2024-02-29] MEDS: sodium bicarbonate (8.4%) inj. 100 MEQ in dextrose 5%-water 1,000 ML IV SCH (11:50)
[2024-02-29 12:33] LABS: ABG BASE EXCESS -9.9 mmol/L (-2.0-2.0); ABG HCO3 14.2 mmol/L (22.0-26.0); ABG PCO2 (T) 26.5 mmHg (32.0-45.0); ABG PH (T) 7.348 (7.350-7.450); ABG PO2 (T) 82.3 mmHg (75.0-100.0); ALLEN'S TEST POSITIVE; FCOHb 0.3 % (0.0-3.9); FMetHb 0.3 % (0.0-1.5); FO2Hb 96.4 % (94-97); MODE ROOM AIR; TOTAL HEMOGLOBIN 11.6 G/dl (12.0-16.0)
[2024-02-29] MEDS: LidoCAINE 2% Topical Jelly 11mL syringe (UROJET) TOP ONE (16:22)
[2024-02-29 16:43] LABS: BILIRUBIN,URINE NEGATIVE (Neg); CLARITY,URINE SLIGHTLY CLOUDY (Clear); COLOR,URINE YELLOW (Yellow); GLUCOSE, URINE NEGATIVE (Neg); KETONES,URINE NEGATIVE (Neg); LEUKOCYTE ESTERASE ,URINE MODERATE (Neg); NITRITES, URINE NEGATIVE (Neg); OCCULT BLOOD,URINE TRACE-INTACT (Neg); PH,URINE 5.5 (4.8-8.0); PROTEIN,URINE TRACE mg/dl (Neg); UROBILINOGEN,URINE 0.2 E.U/dL (0.2-1.0)
[2024-02-29 16:51] LABS: UA COLLECTION TYPE FOLEY CATH
[2024-02-29 16:52] LABS: SQUAMOUS EPITHELIAL CELL,UR FEW /LPF (FEW)
[2024-02-29 16:53] LABS: BACTERIA,URINE 2+ /HPF (Neg); RBC,URINE 0-2 /HPF (0-2); WBC,URINE 50-100 /HPF (0-4)
[2024-02-29 17:03] LABS: TOTAL PROTEIN,URINE RANDOM 103.8 MG/DL
[2024-02-29 17:35] LABS: UA EOSINOPHILS NO EOS /HPF
[2024-02-29] MEDS: VANCOMYCIN 125 MG/5 ML oral SOLN.RECON 5mL UD syringe (FIRVANQ) PO SCH (23:11)
[2024-03-01] VITALS (8 sets, daily range): BP systolic 98–118; BP diastolic 64–80; PULSE 81–96; RESP 12–20; TEMP 97–98.4; O2SAT 95–97
[2024-03-01 08:27] LABS: BASOPHILS % (AUTO) 0.3 % (0-1); EOSINOPHILS # (AUTO) 0.1 X10'3 (0-0.9); EOSINOPHILS % (AUTO) 1.2 % (0-6); HEMATOCRIT 29.1 % (35.0-45.0); HEMOGLOBIN 9.6 g/dl (12.0-16.0); LYMPHOCYTES # (AUTO) 0.6 X10'3 (1.1-4.8); LYMPHOCYTES % (AUTO) 4.8 % (21-51); MEAN CORPUSCULAR HEMOGLOBIN 33.4 PG (27.0-31.0); MEAN CORPUSCULAR HGB CONC 33.1 g/dL (33.0-36.5); MEAN CORPUSCULAR VOLUME 100.8 FL (78-98); MEAN PLATELET VOLUME 8.3 FL (7.4-10.4); MONOCYTES # (AUTO) 1.1 X10'3 (0-0.9); MONOCYTES % (AUTO) 9.2 % (2-12); NEUTROPHILS # (AUTO) 10.2 X10'3 (1.8-7.7); NEUTROPHILS % (AUTO) 84.5 % (42-75); PLATELET COUNT 395 X10'3 (140-440); RED BLOOD COUNT 2.89 X10'6 (4.20-5.60); RED CELL DISTRIBUTION WIDTH 16.3 % (11.5-14.5)
[2024-03-01 08:57] LABS: ALBUMIN 1.3 G/DL (3.4-5.0); ALBUMIN/GLOBULIN RATIO 0.4 (1.1-1.5); ALKALINE PHOSPHATASE 89 IU/L (46-116); ANION GAP 10 (8-16); ASPARTATE AMINO TRANSFERASE 10 U/L (10-37); BILIRUBIN,TOTAL 0.2 MG/DL (0.1-1.0); BLOOD UREA NITROGEN 55 MG/DL (7-18); BUN/CREATININE RATIO 14.1 (10.0-20.0); CALCIUM 7.6 MG/DL (8.5-10.1); CHLORIDE 100 MMOL/L (99-107); CREATININE 3.91 MG/DL (0.40-0.90); GLUCOSE 116 MG/DL (70-104); MAGNESIUM 3.3 MG/DL (1.5-2.4); PHOSPHORUS 3.4 MG/DL (2.3-4.5); POTASSIUM 3.7 MMOL/L (3.5-5.1); SODIUM 131 MMOL/L (135-145); TOTAL CARBON DIOXIDE 21.2 MMOL/L (24-32); TOTAL PROTEIN 4.6 G/DL (6.4-8.2); eCRCL 13 ML/MIN; eGFR 12 ML/MIN
[2024-03-01 08:59] LABS: ALANINE AMINOTRANSFERASE < 6 U/L (12-78)
[2024-03-01] MEDS: furosemide 40mg/4ml inj IV ONE (14:57)
[2024-03-02] VITALS (7 sets, daily range): BP systolic 100–126; BP diastolic 53–81; PULSE 87–100; RESP 15–20; TEMP 97.5–98.1; O2SAT 94–97
[2024-03-02 07:07] LABS: BASOPHILS % (AUTO) 0.5 % (0-1); EOSINOPHILS # (AUTO) 0.1 X10'3 (0-0.9); EOSINOPHILS % (AUTO) 1.4 % (0-6); HEMATOCRIT 30.4 % (35.0-45.0); HEMOGLOBIN 10.2 g/dl (12.0-16.0); LYMPHOCYTES # (AUTO) 0.7 X10'3 (1.1-4.8); LYMPHOCYTES % (AUTO) 8.6 % (21-51); MEAN CORPUSCULAR HEMOGLOBIN 33.4 PG (27.0-31.0); MEAN CORPUSCULAR HGB CONC 33.5 g/dL (33.0-36.5); MEAN CORPUSCULAR VOLUME 99.6 FL (78-98); MEAN PLATELET VOLUME 7.9 FL (7.4-10.4); MONOCYTES # (AUTO) 1.1 X10'3 (0-0.9); MONOCYTES % (AUTO) 13.3 % (2-12); NEUTROPHILS # (AUTO) 6.5 X10'3 (1.8-7.7); NEUTROPHILS % (AUTO) 76.2 % (42-75); PLATELET COUNT 424 X10'3 (140-440); RED BLOOD COUNT 3.05 X10'6 (4.20-5.60); RED CELL DISTRIBUTION WIDTH 16.3 % (11.5-14.5); WHITE BLOOD COUNT 8.5 X10'3 (4.5-11.0)
[2024-03-02 07:36] LABS: ALBUMIN 1.2 G/DL (3.4-5.0); ALBUMIN/GLOBULIN RATIO 0.4 (1.1-1.5); ALKALINE PHOSPHATASE 134 IU/L (46-116); ANION GAP 3 (8-16); ASPARTATE AMINO TRANSFERASE 15 U/L (10-37); BILIRUBIN,TOTAL 0.2 MG/DL (0.1-1.0); BLOOD UREA NITROGEN 51 MG/DL (7-18); CALCIUM 7.2 MG/DL (8.5-10.1); CHLORIDE 99 MMOL/L (99-107); CREATININE 3.39 MG/DL (0.40-0.90); GLUCOSE 116 MG/DL (70-104); MAGNESIUM 2.8 MG/DL (1.5-2.4); PHOSPHORUS 3.8 MG/DL (2.3-4.5); POTASSIUM 3.2 MMOL/L (3.5-5.1); SODIUM 130 MMOL/L (135-145); TOTAL CARBON DIOXIDE 28.5 MMOL/L (24-32); TOTAL PROTEIN 4.5 G/DL (6.4-8.2); eCRCL 14 ML/MIN; eGFR 14 ML/MIN
[2024-03-02 07:44] LABS: ALANINE AMINOTRANSFERASE < 6 U/L (12-78)
[2024-03-02] MEDS: thiamine 100mg tablet PO SCH (08:45)
[2024-03-02] MEDS ORDERED: potassium Cl 40MEQ/1/2NS 520ml 520 ML IV PRN (09:40)
[2024-03-02] MEDS ORDERED: magnesium 2GM in 50ml NS 50 ML IV PRN (09:40)
[2024-03-02] MEDS ORDERED: magnesium 4gm in 100ml NS 100 ML IV PRN (09:40)
[2024-03-02] MEDS ORDERED: magnesium Cl slow-release 64mg tablet PO PRN (09:40)
[2024-03-02] MEDS ORDERED: potassium Cl 20 mEq SR tablet PO PRN (09:40)
[2024-03-02] MEDS: potassium Cl 20 mEq SR tablet PO PRN (09:53)
[2024-03-02] MEDS: lactose-reduced food (Ensure Enlive) - 237ml bottle PO SCH (13:14)
[2024-03-02] MEDS: furosemide 40mg/4ml inj IV ONE (15:09)
[2024-03-02] MEDS: K and/or MAG REPLACEMENT MC SCH (20:00)
[2024-03-03] VITALS (8 sets, daily range): BP systolic 92–116; BP diastolic 65–73; PULSE 56–107; RESP 13–16; TEMP 97.6–98.6; O2SAT 90–97
[2024-03-03 07:09] LABS: BASOPHILS % (AUTO) 0.2 % (0-1); EOSINOPHILS # (AUTO) 0.1 X10'3 (0-0.9); EOSINOPHILS % (AUTO) 1.2 % (0-6); HEMATOCRIT 34.2 % (35.0-45.0); HEMOGLOBIN 11.4 g/dl (12.0-16.0); LYMPHOCYTES # (AUTO) 0.7 X10'3 (1.1-4.8); LYMPHOCYTES % (AUTO) 7.5 % (21-51); MEAN CORPUSCULAR HGB CONC 33.3 g/dL (33.0-36.5); MEAN CORPUSCULAR VOLUME 99.1 FL (78-98); MEAN PLATELET VOLUME 8.2 FL (7.4-10.4); MONOCYTES # (AUTO) 1.5 X10'3 (0-0.9); MONOCYTES % (AUTO) 15.8 % (2-12); NEUTROPHILS # (AUTO) 7.3 X10'3 (1.8-7.7); NEUTROPHILS % (AUTO) 75.3 % (42-75); PLATELET COUNT 452 X10'3 (140-440); RED BLOOD COUNT 3.45 X10'6 (4.20-5.60); RED CELL DISTRIBUTION WIDTH 16.1 % (11.5-14.5); WHITE BLOOD COUNT 9.7 X10'3 (4.5-11.0)
[2024-03-03 07:29] LABS: ALANINE AMINOTRANSFERASE 11 U/L (12-78); ALBUMIN 1.4 G/DL (3.4-5.0); ALBUMIN/GLOBULIN RATIO 0.4 (1.1-1.5); ALKALINE PHOSPHATASE 152 IU/L (46-116); ANION GAP -3 (8-16); ASPARTATE AMINO TRANSFERASE 15 U/L (10-37); BILIRUBIN,TOTAL 0.2 MG/DL (0.1-1.0); BLOOD UREA NITROGEN 44 MG/DL (7-18); BUN/CREATININE RATIO 16.1 (10.0-20.0); CALCIUM 7.4 MG/DL (8.5-10.1); CHLORIDE 97 MMOL/L (99-107); CREATININE 2.73 MG/DL (0.40-0.90); GLUCOSE 119 MG/DL (70-104); MAGNESIUM 2.4 MG/DL (1.5-2.4); POTASSIUM 3.6 MMOL/L (3.5-5.1); SODIUM 131 MMOL/L (135-145); TOTAL CARBON DIOXIDE 36.8 MMOL/L (24-32); TOTAL PROTEIN 4.8 G/DL (6.4-8.2); eCRCL 18 ML/MIN; eGFR 17 ML/MIN
[2024-03-03 08:09] LABS: TOTAL CELLS COUNTED 100
[2024-03-03 08:10] LABS: GIANT PLATELET FEW; PLATELET ESTIMATE INCREASED
[2024-03-03 08:11] LABS: ANISOCYTOSIS 1+
[2024-03-03] MEDS: folic acid 1mg tablet PO SCH (09:00)
[2024-03-03] MEDS: normal saline 1000ml 1,000 ML IV SCH (09:04)
[2024-03-03] MEDS: polyvinyl alcohol eye drops 15ML BOTTLE LEFTEYE PRN (23:41)
[2024-03-04] VITALS (8 sets, daily range): BP systolic 100–118; BP diastolic 65–79; PULSE 88–115; RESP 13–19; TEMP 97.5–98.8; O2SAT 92–94
[2024-03-04 08:19] LABS: BASOPHILS # (AUTO) 0.1 X10'3 (0-0.2); BASOPHILS % (AUTO) 0.7 % (0-1); EOSINOPHILS # (AUTO) 0.1 X10'3 (0-0.9); HEMATOCRIT 32.6 % (35.0-45.0); HEMOGLOBIN 10.7 g/dl (12.0-16.0); LYMPHOCYTES # (AUTO) 1.2 X10'3 (1.1-4.8); LYMPHOCYTES % (AUTO) 9.9 % (21-51); MEAN CORPUSCULAR HEMOGLOBIN 32.8 PG (27.0-31.0); MEAN CORPUSCULAR HGB CONC 32.8 g/dL (33.0-36.5); MEAN PLATELET VOLUME 7.8 FL (7.4-10.4); MONOCYTES # (AUTO) 1.7 X10'3 (0-0.9); MONOCYTES % (AUTO) 14.3 % (2-12); NEUTROPHILS # (AUTO) 8.6 X10'3 (1.8-7.7); NEUTROPHILS % (AUTO) 74.1 % (42-75); PLATELET COUNT 496 X10'3 (140-440); RED BLOOD COUNT 3.26 X10'6 (4.20-5.60); RED CELL DISTRIBUTION WIDTH 16.3 % (11.5-14.5); WHITE BLOOD COUNT 11.7 X10'3 (4.5-11.0)
[2024-03-04 09:03] LABS: ALANINE AMINOTRANSFERASE 8 U/L (12-78); ALBUMIN 1.4 G/DL (3.4-5.0); ALBUMIN/GLOBULIN RATIO 0.4 (1.1-1.5); ALKALINE PHOSPHATASE 140 IU/L (46-116); ANION GAP 1 (8-16); ASPARTATE AMINO TRANSFERASE 15 U/L (10-37); BILIRUBIN,TOTAL 0.2 MG/DL (0.1-1.0); BLOOD UREA NITROGEN 38 MG/DL (7-18); BUN/CREATININE RATIO 17.4 (10.0-20.0); CALCIUM 7.7 MG/DL (8.5-10.1); CHLORIDE 101 MMOL/L (99-107); CREATININE 2.18 MG/DL (0.40-0.90); GLUCOSE 92 MG/DL (70-104); MAGNESIUM 2.1 MG/DL (1.5-2.4); PHOSPHORUS 4.6 MG/DL (2.3-4.5); POTASSIUM 4.4 MMOL/L (3.5-5.1); SODIUM 135 MMOL/L (135-145); TOTAL CARBON DIOXIDE 33.3 MMOL/L (24-32); TOTAL PROTEIN 4.6 G/DL (6.4-8.2); eCRCL 23 ML/MIN; eGFR 23 ML/MIN
[2024-03-04 10:59] LABS: ANISOCYTOSIS 1+; PLATELET ESTIMATE INCREASED; TOTAL CELLS COUNTED 100
[2024-03-04 11:01] LABS: HYPOCHROMASIA 1+; SCHISTOCYTES FEW; STOMATOCYTES 1+
[2024-03-04] MEDS: moxifloxacin 0.5% ophthalmic drops 3ml LEFTEYE SCH (20:19)
[2024-03-05] VITALS (7 sets, daily range): BP systolic 97–127; BP diastolic 63–82; PULSE 90–111; RESP 14–18; TEMP 97.6–98.9; O2SAT 92–96
[2024-03-05 07:18] LABS: BASOPHILS # (AUTO) 0.1 X10'3 (0-0.2); EOSINOPHILS # (AUTO) 0.2 X10'3 (0-0.9); EOSINOPHILS % (AUTO) 1.4 % (0-6); HEMATOCRIT 32.8 % (35.0-45.0); HEMOGLOBIN 10.6 g/dl (12.0-16.0); LYMPHOCYTES # (AUTO) 1.3 X10'3 (1.1-4.8); LYMPHOCYTES % (AUTO) 10.2 % (21-51); MEAN CORPUSCULAR HEMOGLOBIN 32.2 PG (27.0-31.0); MEAN CORPUSCULAR HGB CONC 32.3 g/dL (33.0-36.5); MEAN CORPUSCULAR VOLUME 99.8 FL (78-98); MEAN PLATELET VOLUME 7.6 FL (7.4-10.4); MONOCYTES # (AUTO) 1.5 X10'3 (0-0.9); MONOCYTES % (AUTO) 11.8 % (2-12); NEUTROPHILS # (AUTO) 9.6 X10'3 (1.8-7.7); NEUTROPHILS % (AUTO) 75.6 % (42-75); PLATELET COUNT 598 X10'3 (140-440); RED BLOOD COUNT 3.28 X10'6 (4.20-5.60); RED CELL DISTRIBUTION WIDTH 16.1 % (11.5-14.5); WHITE BLOOD COUNT 12.7 X10'3 (4.5-11.0)
[2024-03-05 07:38] LABS: ALANINE AMINOTRANSFERASE 9 U/L (12-78); ALBUMIN 1.4 G/DL (3.4-5.0); ALBUMIN/GLOBULIN RATIO 0.4 (1.1-1.5); ALKALINE PHOSPHATASE 121 IU/L (46-116); ANION GAP 2 (8-16); ASPARTATE AMINO TRANSFERASE 23 U/L (10-37); BILIRUBIN,TOTAL 0.2 MG/DL (0.1-1.0); BLOOD UREA NITROGEN 33 MG/DL (7-18); BUN/CREATININE RATIO 16.6 (10.0-20.0); CALCIUM 7.7 MG/DL (8.5-10.1); CHLORIDE 104 MMOL/L (99-107); CREATININE 1.99 MG/DL (0.40-0.90); GLUCOSE 97 MG/DL (70-104); MAGNESIUM 1.9 MG/DL (1.5-2.4); PHOSPHORUS 4.7 MG/DL (2.3-4.5); POTASSIUM 4.3 MMOL/L (3.5-5.1); SODIUM 136 MMOL/L (135-145); TOTAL CARBON DIOXIDE 29.7 MMOL/L (24-32); TOTAL PROTEIN 4.6 G/DL (6.4-8.2); eCRCL 25 ML/MIN; eGFR 25 ML/MIN
[2024-03-05 07:57] LABS: ANISOCYTOSIS 1+; PLATELET ESTIMATE INCREASED; TOTAL CELLS COUNTED 100
[2024-03-06 02:00] VITALS: BP 117/78; PULSE 105; RESP 18; TEMP 97.7; O2SAT 93
[2024-03-06 06:29] VITALS: BP 120/77; PULSE 91; RESP 17; TEMP 97.6; O2SAT 93
[2024-03-06 06:57] LABS: BASOPHILS # (AUTO) 0.1 X10'3 (0-0.2); BASOPHILS % (AUTO) 0.8 % (0-1); EOSINOPHILS # (AUTO) 0.2 X10'3 (0-0.9); HEMATOCRIT 31.6 % (35.0-45.0); HEMOGLOBIN 10.3 g/dl (12.0-16.0); LYMPHOCYTES # (AUTO) 1.3 X10'3 (1.1-4.8); MEAN CORPUSCULAR HGB CONC 32.6 g/dL (33.0-36.5); RED BLOOD COUNT 3.14 X10'6 (4.20-5.60)
[2024-03-06 07:00] LABS: EOSINOPHILS % (AUTO) 1.3 % (0-6); LYMPHOCYTES % (AUTO) 8.9 % (21-51); MEAN CORPUSCULAR HEMOGLOBIN 32.9 PG (27.0-31.0); MEAN CORPUSCULAR VOLUME 100.7 FL (78-98); MEAN PLATELET VOLUME 7.3 FL (7.4-10.4); MONOCYTES # (AUTO) 1.1 X10'3 (0-0.9); MONOCYTES % (AUTO) 7.9 % (2-12); NEUTROPHILS # (AUTO) 11.6 X10'3 (1.8-7.7); NEUTROPHILS % (AUTO) 81.1 % (42-75); PLATELET COUNT 618 X10'3 (140-440); RED CELL DISTRIBUTION WIDTH 16.4 % (11.5-14.5); WHITE BLOOD COUNT 14.3 X10'3 (4.5-11.0)
[2024-03-06 07:12] LABS: ALANINE AMINOTRANSFERASE 11 U/L (12-78); ALBUMIN 1.3 G/DL (3.4-5.0); ALBUMIN/GLOBULIN RATIO 0.4 (1.1-1.5); ALKALINE PHOSPHATASE 103 IU/L (46-116); ANION GAP 4 (8-16); ASPARTATE AMINO TRANSFERASE 16 U/L (10-37); BILIRUBIN,TOTAL 0.2 MG/DL (0.1-1.0); BLOOD UREA NITROGEN 28 MG/DL (7-18); BUN/CREATININE RATIO 15.3 (10.0-20.0); CALCIUM 7.7 MG/DL (8.5-10.1); CHLORIDE 105 MMOL/L (99-107); CREATININE 1.83 MG/DL (0.40-0.90); GLUCOSE 96 MG/DL (70-104); MAGNESIUM 1.8 MG/DL (1.5-2.4); PHOSPHORUS 4.8 MG/DL (2.3-4.5); POTASSIUM 4.3 MMOL/L (3.5-5.1); SODIUM 138 MMOL/L (135-145); TOTAL CARBON DIOXIDE 28.9 MMOL/L (24-32); TOTAL PROTEIN 4.4 G/DL (6.4-8.2); eCRCL 27 ML/MIN; eGFR 28 ML/MIN
[2024-03-06 08:00] VITALS: RESP 18; O2SAT 96
[2024-03-06 10:10] LABS: TOTAL CELLS COUNTED 100
[2024-03-06 10:11] LABS: ANISOCYTOSIS 1+; HYPOCHROMASIA 1+; PLATELET ESTIMATE INCREASED
[2024-03-06 10:54] VITALS: BP 115/75; PULSE 105; RESP 16; TEMP 97.9; O2SAT 95
[2024-03-06 14:54] VITALS: BP 115/63; PULSE 94; RESP 16; TEMP 97.8; O2SAT 95
[2024-03-06 19:00] VITALS: BP 116/86; PULSE 102; RESP 20; TEMP 99.6; O2SAT 96
[2024-03-06] MEDS: acetaminophen 325mg tablet PO PRN (19:22)
[2024-03-07 06:12] LABS: BASOPHILS # (AUTO) 0.1 X10'3 (0-0.2); BASOPHILS % (AUTO) 0.7 % (0-1); EOSINOPHILS # (AUTO) 0.2 X10'3 (0-0.9); HEMOGLOBIN 10.6 g/dl (12.0-16.0); LYMPHOCYTES # (AUTO) 1.3 X10'3 (1.1-4.8); LYMPHOCYTES % (AUTO) 8.9 % (21-51); NEUTROPHILS # (AUTO) 11.8 X10'3 (1.8-7.7); RED CELL DISTRIBUTION WIDTH 16.6 % (11.5-14.5)
[2024-03-07 06:15] LABS: EOSINOPHILS % (AUTO) 1.1 % (0-6); HEMATOCRIT 32.9 % (35.0-45.0); MEAN CORPUSCULAR HEMOGLOBIN 32.4 PG (27.0-31.0); MEAN CORPUSCULAR HGB CONC 32.1 g/dL (33.0-36.5); MEAN CORPUSCULAR VOLUME 101.2 FL (78-98); MEAN PLATELET VOLUME 7.8 FL (7.4-10.4); MONOCYTES # (AUTO) 1.1 X10'3 (0-0.9); MONOCYTES % (AUTO) 7.7 % (2-12); NEUTROPHILS % (AUTO) 81.6 % (42-75); PLATELET COUNT 678 X10'3 (140-440); RED BLOOD COUNT 3.26 X10'6 (4.20-5.60); WHITE BLOOD COUNT 14.5 X10'3 (4.5-11.0)
[2024-03-07 06:36] LABS: ALANINE AMINOTRANSFERASE 7 U/L (12-78); ALBUMIN 1.3 G/DL (3.4-5.0); ALBUMIN/GLOBULIN RATIO 0.4 (1.1-1.5); ALKALINE PHOSPHATASE 85 IU/L (46-116); ANION GAP 5 (8-16); ASPARTATE AMINO TRANSFERASE 11 U/L (10-37); BILIRUBIN,TOTAL 0.3 MG/DL (0.1-1.0); BLOOD UREA NITROGEN 33 MG/DL (7-18); BUN/CREATININE RATIO 18.5 (10.0-20.0); CALCIUM 7.9 MG/DL (8.5-10.1); CHLORIDE 106 MMOL/L (99-107); CREATININE 1.78 MG/DL (0.40-0.90); GLUCOSE 105 MG/DL (70-104); MAGNESIUM 1.8 MG/DL (1.5-2.4); PHOSPHORUS 5.2 MG/DL (2.3-4.5); POTASSIUM 4.4 MMOL/L (3.5-5.1); SODIUM 137 MMOL/L (135-145); TOTAL CARBON DIOXIDE 26.4 MMOL/L (24-32); TOTAL PROTEIN 4.5 G/DL (6.4-8.2); eCRCL 28 ML/MIN; eGFR 29 ML/MIN
[2024-03-07 07:19] VITALS: BP 109/76; PULSE 106; RESP 18; TEMP 97.9; O2SAT 93
[2024-03-07 08:45] VITALS: RESP 18; O2SAT 93
[2024-03-07 09:44] LABS: TOTAL CELLS COUNTED 100
[2024-03-07 09:45] LABS: ANISOCYTOSIS 1+; PLATELET ESTIMATE INCREASED
[2024-03-07 09:46] LABS: TOXIC GRANULATION 1+
[2024-03-07] MEDS: VANCOMYCIN 125 MG/5 ML oral SOLN.RECON 5mL UD syringe (FIRVANQ) PO SCH (12:54)
[2024-03-07 15:30] VITALS: BP 104/72; PULSE 100; RESP 16; TEMP 97.9; O2SAT 94
[2024-03-07 18:00] VITALS: BP 107/66; PULSE 111; RESP 20; TEMP 98.6; O2SAT 93
[2024-03-07 22:00] VITALS: BP 117/71; PULSE 99; RESP 17; TEMP 98.4; O2SAT 93
[2024-03-08] VITALS (7 sets, daily range): BP systolic 101–128; BP diastolic 58–86; PULSE 86–110; RESP 16–18; TEMP 97.3–98.1; O2SAT 92–96
[2024-03-08] MEDS ORDERED: PHENYLEPH/MIN OIL/PETROLAT hemorrhoid oint 57GM tube RC PRN (03:40)
[2024-03-08] MEDS: PHENYLEPH/MIN OIL/PETROLAT hemorrhoid oint 57GM tube RC SCH (04:10)
[2024-03-08 06:07] LABS: BASOPHILS # (AUTO) 0.1 X10'3 (0-0.2); EOSINOPHILS # (AUTO) 0.3 X10'3 (0-0.9); EOSINOPHILS % (AUTO) 1.7 % (0-6); HEMOGLOBIN 9.2 g/dl (12.0-16.0); MEAN PLATELET VOLUME 7.5 FL (7.4-10.4); MONOCYTES # (AUTO) 1.2 X10'3 (0-0.9); MONOCYTES % (AUTO) 6.9 % (2-12); NEUTROPHILS # (AUTO) 14.2 X10'3 (1.8-7.7); WHITE BLOOD COUNT 16.9 X10'3 (4.5-11.0)
[2024-03-08 06:10] LABS: BASOPHILS % (AUTO) 0.7 % (0-1); HEMATOCRIT 28.5 % (35.0-45.0); LYMPHOCYTES # (AUTO) 1.1 X10'3 (1.1-4.8); LYMPHOCYTES % (AUTO) 6.6 % (21-51); MEAN CORPUSCULAR HEMOGLOBIN 32.2 PG (27.0-31.0); MEAN CORPUSCULAR HGB CONC 32.2 g/dL (33.0-36.5); MEAN CORPUSCULAR VOLUME 99.8 FL (78-98); NEUTROPHILS % (AUTO) 84.1 % (42-75); PLATELET COUNT 678 X10'3 (140-440); RED BLOOD COUNT 2.86 X10'6 (4.20-5.60); RED CELL DISTRIBUTION WIDTH 16.6 % (11.5-14.5)
[2024-03-08 06:26] LABS: ANISOCYTOSIS 1+; LARGE PLATELETS FEW; PLATELET ESTIMATE INCREASED
[2024-03-08 06:28] LABS: ALANINE AMINOTRANSFERASE 8 U/L (12-78); ALBUMIN 1.3 G/DL (3.4-5.0); ALBUMIN/GLOBULIN RATIO 0.4 (1.1-1.5); ALKALINE PHOSPHATASE 73 IU/L (46-116); ANION GAP 5 (8-16); ASPARTATE AMINO TRANSFERASE 9 U/L (10-37); BILIRUBIN,TOTAL 0.3 MG/DL (0.1-1.0); BLOOD UREA NITROGEN 26 MG/DL (7-18); BUN/CREATININE RATIO 15.9 (10.0-20.0); CALCIUM 7.9 MG/DL (8.5-10.1); CHLORIDE 107 MMOL/L (99-107); CREATININE 1.64 MG/DL (0.40-0.90); GLUCOSE 98 MG/DL (70-104); MAGNESIUM 1.6 MG/DL (1.5-2.4); PHOSPHORUS 5.4 MG/DL (2.3-4.5); POTASSIUM 4.1 MMOL/L (3.5-5.1); SODIUM 138 MMOL/L (135-145); TOTAL CARBON DIOXIDE 25.8 MMOL/L (24-32); TOTAL PROTEIN 4.3 G/DL (6.4-8.2); eCRCL 30 ML/MIN; eGFR 31 ML/MIN
[2024-03-08] MEDS: NUT.TX.IMP.RENAL FXN,LAC-REDUC (Nepro) 237 ML VANILLA PO SCH (17:32)
[2024-03-09 02:29] VITALS: BP 114/74; PULSE 101; RESP 16; TEMP 97.7; O2SAT 95
[2024-03-09 07:07] LABS: BASOPHILS # (AUTO) 0.1 X10'3 (0-0.2); EOSINOPHILS # (AUTO) 0.2 X10'3 (0-0.9); EOSINOPHILS % (AUTO) 1.2 % (0-6); HEMOGLOBIN 8.4 g/dl (12.0-16.0); LYMPHOCYTES # (AUTO) 1.1 X10'3 (1.1-4.8); MEAN PLATELET VOLUME 7.8 FL (7.4-10.4); RED BLOOD COUNT 2.54 X10'6 (4.20-5.60); WHITE BLOOD COUNT 15.4 X10'3 (4.5-11.0)
[2024-03-09 07:08] LABS: BASOPHILS % (AUTO) 0.4 % (0-1); HEMATOCRIT 25.6 % (35.0-45.0); LYMPHOCYTES % (AUTO) 7.2 % (21-51); MEAN CORPUSCULAR HGB CONC 32.8 g/dL (33.0-36.5); MEAN CORPUSCULAR VOLUME 100.7 FL (78-98); MONOCYTES % (AUTO) 6.3 % (2-12); NEUTROPHILS # (AUTO) 13.1 X10'3 (1.8-7.7); NEUTROPHILS % (AUTO) 84.9 % (42-75); PLATELET COUNT 666 X10'3 (140-440); RED CELL DISTRIBUTION WIDTH 16.3 % (11.5-14.5)
[2024-03-09 07:24] LABS: ALANINE AMINOTRANSFERASE 9 U/L (12-78); ALBUMIN 1.2 G/DL (3.4-5.0); ALBUMIN/GLOBULIN RATIO 0.4 (1.1-1.5); ALKALINE PHOSPHATASE 68 IU/L (46-116); ANION GAP 5 (8-16); ASPARTATE AMINO TRANSFERASE 14 U/L (10-37); BILIRUBIN,TOTAL 0.3 MG/DL (0.1-1.0); BLOOD UREA NITROGEN 20 MG/DL (7-18); BUN/CREATININE RATIO 12.3 (10.0-20.0); CALCIUM 7.8 MG/DL (8.5-10.1); CHLORIDE 110 MMOL/L (99-107); CREATININE 1.62 MG/DL (0.40-0.90); GLUCOSE 90 MG/DL (70-104); POTASSIUM 4.3 MMOL/L (3.5-5.1); SODIUM 139 MMOL/L (135-145); TOTAL CARBON DIOXIDE 24.1 MMOL/L (24-32); TOTAL PROTEIN 4.2 G/DL (6.4-8.2); eCRCL 30 ML/MIN; eGFR 32 ML/MIN
[2024-03-09] MEDS: lactobacillus rhamnosus 10,000 MMU CELLS/CAPSULE PO SCH (07:58)
[2024-03-09 08:00] VITALS: RESP 20; O2SAT 96
== END 2024-03-09 14:17 | DRG 871 ==
LOC: ER 13:57 → ED HOLD 17:59 → PCU 3S 20:30
PROVIDERS: ADMIT Internal Medicine; ATTEND Internal Medicine
PROC: CT131ZZ Planar Nuclear Medicine Imaging of Kidneys, Ureters and Bladder using Technetium 99m (Tc-99m) (ICD-10-PCS; principal; 2024-03-02)
DX: A41.9 Sepsis, unspecified organism (principal); N17.0 Acute kidney failure with tubular necrosis; A04.72 Enterocolitis due to Clostridium difficile, not specified as recurrent; E87.1 Hypo-osmolality and hyponatremia; N13.6 Pyonephrosis; E87.20 Acidosis, unspecified; Z66 Do not resuscitate; G51.0 Bell's palsy; N18.30 Chronic kidney disease, stage 3 unspecified; F31.9 Bipolar disorder, unspecified; F17.210 Nicotine dependence, cigarettes, uncomplicated; F10.90 Alcohol use, unspecified, uncomplicated; N28.89 Other specified disorders of kidney and ureter; H10.9 Unspecified conjunctivitis; D53.9 Nutritional anemia, unspecified; Z95.1 Presence of aortocoronary bypass graft; Z90.710 Acquired absence of both cervix and uterus; Z79.899 Other long term (current) drug therapy
CPT/HCPCS: 36415; 36600; 71045; 74018; 74176; 76770; 78708; 80053; 80076; 81001; 82570; 82803; 83605; 83690; 83735; 84100; 84145; 84156; 84300; 84484; 85007; 85008; 85018; 85025; 87040; 87045; 87046; 87081; 87088; 87207; 87324; 87449; 89055; 96365; 96367; 96375; 97161; 97530; 97535; 99285; A4314; A6250; A9562; G0378; J0131; J0696; J1644; J1940; J2270; J2405; J3490; J7030; J7040; J7070; J7121